=== PATIENT | female | born 1965 | race Caucasian/White ===

== ENCOUNTER 2019-04-08 14:07 | Inpatient (IN) ==
[2019-04-08] MEDS: *HR* LORazepam 0.5 MG TABLET PO PRN (21:40)
[2019-04-08] MEDS: Gabapentin 300 MG CAPSULE PO SCH (21:40)
[2019-04-08] MEDS ORDERED: Ondansetron ODT 4 MG TAB.RAPDIS SL PRN (22:42)
[2019-04-08] MEDS ORDERED: Mag Hydrox/Al Hydrox/Simeth 30 ML UDC PO PRN (22:42)
[2019-04-08] MEDS: Acetaminophen 325 MG TABLET PO PRN (23:03)
[2019-04-09 05:42] LABS: Basophils # 0.1 K/mcL (0.0-0.2); Basophils % 1.1 %; Eosinophils # 0.2 K/mcL (0.0-0.6); Eosinophils % 2.4 %; Hematocrit 28.1 % (35.3-44.9); Hemoglobin 9.2 g/dL (11.5-15.4); Immature Granulocytes % 0.9 % (0-4); Lymphocytes # 2.5 K/mcL (0.6-4.6); Lymphocytes % 37.4 %; Mean Corpuscular HGB Conc 32.7 g/dL (31.6-35.5); Mean Corpuscular Hemoglobin 34.3 pg (28.0-33.3); Mean Corpuscular Volume 104.9 fL (83.0-100.0); Mean Platelet Volume 9.4 fL (9.4-12.4); Monocytes # 0.6 K/mcL (0.0-1.3); Monocytes % 9.6 %; Neutrophils # 3.2 K/mcL (1.6-8.9); Platelet Count 286 K/mcL (140-400); Red Blood Count 2.68 M/mcL (3.82-4.97); Red Cell Distribution Width 15.7 % (11.5-14.5); Segmented Neutrophils % 48.6 %; White Blood Count 6.7 K/mcL (4.3-11.1)
[2019-04-09] MEDS: Ibuprofen 400 MG TABLET PO PRN ×2 (05:42→11:29)
[2019-04-09 05:58] LABS: BUN/Creatinine Ratio 15 (6-26); Blood Urea Nitrogen 8 mg/dL (6-20); Calcium 7.6 mg/dL (8.6-10.3); Carbon Dioxide 26 mEq/L (23-29); Chloride 104 mEq/L (98-107); Glucose 83 mg/dL (70-105); Osmolality,Calculated 285 (280-300); Potassium 3.7 mEq/L (3.5-5.1); Sodium 139 mEq/L (136-145); eGFR For African Americans > 60 (> 60); eGFR For Non-African Americans > 60 (> 60)
[2019-04-09] MEDS: Thiamine (B-1) 100 MG TABLET PO SCH (08:32)
[2019-04-09] MEDS: Lisinopril 20 MG TABLET PO SCH (08:32)
[2019-04-09] MEDS: Aspirin Enteric Coated 81 MG Tablet PO SCH (08:32)
[2019-04-09] MEDS: Gabapentin 300 MG CAPSULE PO SCH ×4 (08:32→20:38)
[2019-04-09] MEDS: Furosemide 40 MG TABLET PO SCH (08:33)
[2019-04-09] MEDS: Folic Acid 1 MG TABLET PO SCH (08:33)
[2019-04-09] MEDS: Nicotine 21 MG PATCH.TD24 TD SCH (08:33)
[2019-04-09] MEDS: *HR* LORazepam 0.5 MG TABLET PO PRN ×2 (08:49→20:38)
[2019-04-09] MEDS: *HR* Enoxaparin 40 MG/0.4 ML SYRINGE SQ SCH (08:50)
--- NOTE | 2019-04-09 09:51 | Internal Med History&Physical ---
Date of Encounter: 04/09/19 Time of Encounter: 09:38 Assessment and Plan (1) Weakness Current visit: Yes Status: Acute Patient was admitted to this facility for further rehabilitation due to generalized weakness and unsteady gait noted during leonardo therapy evaluation at [facility]. Patient was originally admitted to [facility] for complaints of chest discomforts, treatment for UTI and complaints of neuropathy. Patient was diagnosed with alcoholic induced neuropathy, but states that she has no numbness to the feet and states she feels he has a steady gait. Patient states that she is able to ambulate distances greater than 50 feet without getting short of breath. Patient with history of severe tobacco abuse. Physical therapy evaluation pending. (2) Alcohol abuse Current visit: Yes Status: Acute Patient with a history of EtOH abuse, stating that she had stopped drinking approximately one month ago. Patient admitted that she was a daily drinker. Currently patient appears relaxed and shows no signs of withdrawal. (3) Peripheral neuropathy Current visit: Yes Status: Acute Patient with complaints of neuropathy type pain in the bilateral hands and feet which she describes as a burning type pain. Patient was recently started on gabapentin several days ago. No limits of range of motion or fine motor noted with hands. We will continue with current medications and evaluate patient's response. Patient with scheduled outpatient EMG, which was arranged while she was patient had [facility]. 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 We will continue with current medications and continue to monitor. Qualifiers: Hypertension type: essential hypertension Qualified Code(s): I10 - Essential (primary) hypertension (5) Chest pain Current visit: Yes Status: Acute Patient was originally admitted to [facility] for complaints of chest discomforts. Patient was evaluated and showed no cardiac involvement. Qualifiers: Chest pain type: unspecified Qualified Code(s): R07.9 - Chest pain, unspecified (6) Smoking addiction Current visit: Yes Status: Acute Patient states that prior to admission [facility] she was smoking 3 packs a day. Currently denies any craving for smoking. Patient states that she would occasionally become short of breath during activity when at home but denies any dyspnea when ambulating. Patient states that she can ambulate greater than 100 feet without assistance or dyspnea. Denies any use of bronchodilators prior to her admission. Internal Medicine - H&P: HPI Chief complaint: Weakness Admitted From: Hospital to Hospital Transfer Plans for Post Hospital Care: Home History of present illness: Ms. Canales is a 53 year old female with a past medical history significant for GERD, hypertension, tobacco abuse, alcohol abuse. presented to the hospital because of chest pain and also pain with weakness in the upper and lower extremities, 1 year duration, progressively worsening. Patient initially me ntioned that she has has been drinking 15 shots in the week for almost 1-2 years. During this interview, she states that she at times drinks daily, but now states that she has stopped smoking and drinking alcohol. Initial symptoms at [facility] were initially concerning for stroke. CT scan of the head and neck were negative. CT angiogram was also negative for any high grade stenosis or aneurysm. Patient was admitted for further management with a neurology consult. MRI of the brain and spine was also obtained which did not reveal any acute changes, only had mild degenerative changes in the spine. After further history was obtained, it was assumed that patient signed and symptoms are most likely because of alcohol abuse. She was diagnosed with alcoholic neurpathy and was started on gabapentin, 300 mg BID. Neurology recommended to get EMG and nerve conduction studies done as an outpatient in 2-3 weeks. PT/OT recommended the rehabilitation due to her generalized weakness and deconditioning was transferred to [facility]. Patient was also found to have a positive UTI when admitted at [facility] and was treated with antibiotics. Currently denies any dysuria. Today patient with complaints of neuropathy type pain to bilateral hands and feet which she describes as a burning type pain. Denies any numbness. Patient states that her burning pain has been present for approximately one week and had indicated that they had started her on gabapentin while admitted at [facility]. 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,, MULTIBLE FALLS Psychiatric history: anxiety, depression - Past Surgical History Surgical History: , hysterectomy - Social History Smoking Status: Former smoker Smokeless Tobacco Status: No Alcohol use: recent Drug use: none - Family History Father Adopted: No Family Member Ethnicity: Non- Living Status: Hx Family Cardiac Disorders: Yes Hx Family Respiratory Disorders: No Hx Family Cancer: No Hx Family GI Disorders: No Hx Family Endocrine Disorder: No Hx Family Neuromuscular Disorders: No Hx Family Neurologic Disorders: No Hx Family HEENT Disorders: No Hx Family Autoimmune Disorders: No Internal Medicine - H&P: Meds Aspirin [Lo-Dose Aspirin EC] 81 mg PO DAILY 04/03/19 [History] Furosemide [Lasix] 40 mg PO QAM 04/03/19 [History] Lisinopril [Zestril] 40 mg PO DAILY 04/03/19 [History] Pantoprazole Sodium [Protonix] 40 mg PO BID 04/03/19 [History] Potassium Chloride [K-Tab ER] 20 meq PO DAILY 04/03/19 [History] Promethazine [Phenergan] 25 mg PO Q6HR PRN 04/03/19 [History] Folic Acid 1 mg PO DAILY #30 tablet 04/08/19 [Rx] Gabapentin [Neurontin] 300 mg PO BID #14 capsule 04/08/19 [Rx] LORazepam [Ativan] 0.5 mg PO BID PRN 7 Days #14 tablet 04/08/19 [Rx] Nicotine Patch [Nicoderm] 21 mg TD DAILY patch.td24 04/08/19 [Rx] Thiamine (B-1) [Vitamin B-1] 100 mg PO DAILY #30 tablet 04/08/19 [Rx] Allergy/AdvReac Type Severity Reaction Status Date / Time citalopram [From Celexa] Allergy Vomiting Verified 04/03/19 11:21 duloxetine [From Cymbalta] Allergy Vomiting Verified 04/03/19 11:21 All Systems PM: A 10-system review of systems was performed and is negative for pertinent findings except as documented above in the HPI. - Constitutional Constitutional: as per HPI, no chills, no fever(s), no night sweats - EENT Eyes: as per HPI, no change in vision, no discharge, no pain, no photophobia Ears: no ear discharge, no ear pain, no tinnitus Nose, mouth and throat: as per HPI, no dysphagia, no nasal discharge, no neck pain, no sore throat - Breasts Breasts: as per HPI - Cardiovascular Cardiovascular ROS IM: as per HPI, no chest pain, no diaphoresis, no dyspnea, no lightheadedness, no palpitations, no syncope - Respiratory Respiratory: as per HPI, no cough, no dyspnea, no wheezing, no excessive phlegm production - Gastrointestinal Gastrointestinal: as per HPI, no abdominal pain, no diarrhea, no hematemesis, no hematochezia, no melena, no nausea, no vomiting - Genitourinary Genitourinary: as per HPI, no change in urinary stream, no dysuria, no flank pain, no hematuria - Musculoskeletal Musculoskeletal ROS IM: as per HPI, no numbness, no tingling - Integumentary Integumentary IM: as per HPI, no rash, no unusual bruising - Neurological Neurological ROS: as per HPI, no confusion, no convulsions, no focal weakness, no numbness, no tingling, no tremor(s) - Psychiatric Psychiatric: as per HPI - Hematologic/Lymphatic Hematologic/Lymphatic: no easy bruising - Constitutional Vitals: Temp Pulse Resp BP Pulse Ox 97.6 F 91 16 152/92 98 04/09/19 07:34 04/09/19 07:34 04/09/19 07:34 04/09/19 07:34 04/09/19 07:34 General appearance: Present: A&O X 3, pleasant - Head Head exam: Present: atraumatic, normocephalic - Eye Eye exam: Present: PERRL, conjuntiva pink, sclera anicteric Pupils: Present: PERRL - Neck Neck exam general surgery: Present: supple, trachea midline. Absent: lymphadenopathy - Respiratory Respiratory exam: Present: CTAB. Absent: accessory muscle use, rales, rhonchi, wheezes - Cardiovascular Cardiovascular exam: Present: RRR, +S1, +S2. Absent: diastolic murmur, gallop, rubs, systolic murmur - GI/Abdominal GI/Abdominal exam: Present: normal bowel sounds, soft, no peritoneal signs. Absent: distended, tenderness - Extremities Exam Extremities exam: Present: warm, radial pulses palpable and symmetrical. Absent: calf tenderness, cyanotic, pedal edema Additional comments: Patient complaints of neuropathy type tingling pain to bilateral hands up to the mid wrist level. Patient also with complaints of neuropathy type pain bilateral feet to the upper ankle low. States pain is worse with palpation. No limits to range of motion or fine motor movement noted - Neurological Exam Neurological exam: Present: CN II-XII intact, oriented X3, no focal deficits. A bsent: pronater drift, facial droop, speech deficit - Skin Skin exam: Present: dry, intact Internal Med - H&P Results - Labs CBC & Chem 7: 04/09/19 05:35 04/09/19 05:35 Labs: Short CBC 04/09/19 Range/Units 05:35 WBC 6.7 (4.3-11.1) K/mcL Hgb 9.2 L (11.5-15.4) g/dL Hct 28.1 L (35.3-44.9) % Plt Count 286 (140-400) K/mcL Neutrophils # 3.2 (1.6-8.9) K/mcL BMP 04/09/19 05:35 Sodium 139 Potassium 3.7 Chloride 104 Carbon Dioxide 26 BUN 8 Creatinine 0.53 L Glucose 83 Calcium 7.6 L
[2019-04-09] MEDS ORDERED: Magnesium Sulfate 2 GM in D5% in Water 100 ML IVPB ONE (10:15)
[2019-04-09 10:50] LABS: Albumin 2.5 g/dL (3.5-5.7); Bilirubin,Direct 0.4 mg/dL (0.0-0.2); Bilirubin,Indirect 0.5 mg/dL (0.0-1.2); Bilirubin,Total 0.9 mg/dL (0.3-1.0); Globulin 2.4 g/dL (2.4-3.5); Total Protein 4.9 g/dL (6.4-8.9)
[2019-04-09] MEDS: Acetaminophen 325 MG TABLET PO PRN (16:30)
[2019-04-09] MEDS: Melatonin 3 MG TABLET PO PRN (20:38)
[2019-04-10] MEDS: Nicotine 21 MG PATCH.TD24 TD SCH (08:41)
[2019-04-10] MEDS: Aspirin Enteric Coated 81 MG Tablet PO SCH (08:43)
[2019-04-10] MEDS: Furosemide 40 MG TABLET PO SCH (08:43)
[2019-04-10] MEDS: *HR* LORazepam 0.5 MG TABLET PO PRN ×2 (08:43→20:24)
[2019-04-10] MEDS: *HR* Enoxaparin 40 MG/0.4 ML SYRINGE SQ SCH (08:43)
[2019-04-10] MEDS: Folic Acid 1 MG TABLET PO SCH (08:43)
[2019-04-10] MEDS: Lisinopril 20 MG TABLET PO SCH (08:43)
[2019-04-10] MEDS: Gabapentin 300 MG CAPSULE PO SCH ×4 (08:43→20:24)
[2019-04-10] MEDS: Thiamine (B-1) 100 MG TABLET PO SCH (08:43)
--- NOTE | 2019-04-10 12:08 | Internal Med Progress Note ---
Date of Encounter: 04/10/19 Time of Encounter: 12:06 - Assessment and plan (1) Weakness Current Visit: Yes Status: Acute Assessment and plan: Continue PT and OT. Will follow progress. Ambulating with Walker. Has had a reported loss of balance with therapy. (2) Smoking addiction Current Visit: Yes Status: Acute Assessment and plan: States she spent 3 packs a day at times at home. Denies any craving for smoking at this time. (3) Alcohol abuse Current Visit: Yes Status: Acute Assessment and plan: Educated alcohol abuse and medical side effects that can cause neuropathy. (4) Peripheral neuropathy Current Visit: Yes Status: Acute Assessment and plan: Continue gabapentin. Follow up with neurology. 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 Monitor blood pressure. Qualifiers: Hypertension type: essential hypertension Qualified Code(s): I10 - Essential (primary) hypertension - Time Spent With Patient less than 15 minutes - Subjective Interval history: Patient participating well with therapy. Contact guard assist with Walker. Has had occasional balance loss. Continues to complain of bilateral numbness, tingling in pain in bilateral feet and hands. Gabapentin was recently increased. Maintaining appetite and hydration. Denies having a craving for smoking. Discussed alcohol abuse in the link they could have with neuropathy. Patient states that she would only have "drinks" occasionally and not every day. States she cares for her 3 young grandkids during the day 4 days a week. Was diagnosed in 2008 with fibromyalgia. Has had history of TIA. - Constitutional Vitals: Temp Pulse Resp BP Pulse Ox 98.0 F 103 18 144/86 97 04/10/19 07:00 04/10/19 07:00 04/10/19 07:00 04/10/19 10:36 04/10/19 07:00 General appearance: Present: A&O X 3, pleasant, answers questions appropriately - Head Head exam: Present: atraumatic, normocephalic - Eye Eye exam: Present: PERRL, conjuntiva pink, sclera anicteric Pupils: Present: PERRL - Neck Neck exam general surgery: Present: supple, trachea midline. Absent: lymphadenopathy - Respiratory Respiratory exam: Present: CTAB. Absent: accessory muscle use, rales, rhonchi, wheezes - Cardiovascular Cardiovascular exam: Present: RRR, +S1, +S2. Absent: diastolic murmur, gallop, rubs, systolic murmur - GI/Abdominal GI/Abdominal exam: Present: normal bowel sounds, soft, no peritoneal signs. Absent: distended, tenderness - Extremities Exam Extremities exam: Present: warm, radial pulses palpable and symmetrical. Absent: calf tenderness, cyanotic, pedal edema - Neurological Exam Neurological exam: Present: CN II-XII intact, oriented X3, no focal deficits. Absent: pronater drift, facial droop, speech deficit - Skin Skin exam: Present: dry, intact Internal Medicine: Result - Labs CBC & Chem 7: 04/09/19 05:35 04/09/19 05:35 Consult Discharge Plan - Plan Referrals: Kristne Griffiths, [facility] [Primary Care Provider] -
[2019-04-10] MEDS: Acetaminophen 325 MG TABLET PO PRN (15:21)
[2019-04-10] MEDS: Melatonin 3 MG TABLET PO PRN (20:24)
[2019-04-11] MEDS: Thiamine (B-1) 100 MG TABLET PO SCH (08:06)
[2019-04-11] MEDS: Aspirin Enteric Coated 81 MG Tablet PO SCH (08:06)
[2019-04-11] MEDS: *HR* Enoxaparin 40 MG/0.4 ML SYRINGE SQ SCH (08:06)
[2019-04-11] MEDS: Furosemide 40 MG TABLET PO SCH (08:06)
[2019-04-11] MEDS: *HR* LORazepam 0.5 MG TABLET PO PRN ×2 (08:06→20:20)
[2019-04-11] MEDS: Lisinopril 20 MG TABLET PO SCH (08:06)
[2019-04-11] MEDS: Folic Acid 1 MG TABLET PO SCH (08:06)
[2019-04-11] MEDS: Gabapentin 300 MG CAPSULE PO SCH ×4 (08:06→20:20)
[2019-04-11] MEDS: Nicotine 21 MG PATCH.TD24 TD SCH (08:07)
--- NOTE | 2019-04-11 09:02 | Internal Med Progress Note ---
Date of Encounter: 04/11/19 Time of Encounter: 08:59 - Assessment and plan (1) Alcohol abuse Current Visit: Yes Status: Acute Assessment and plan: No withdrawal at the present time Mild tacy last night stable on small dose of Ativan continue present meds for now. She dnies that ETOH is an issues and is is in denial (2) Hypomagnesemia Current Visit: No Status: Acute Assessment and plan: resolved IV Mg last levels stable (3) Peripheral neuropathy Current Visit: Yes Status: Acute Assessment and plan: Most likely due to alcohol abuse . Neurantin has been started she diens that ETOH is an issue Since complains of lot of pain . She can't take NSAID due to high risk for bleedin in GI tract which she had in the past and a trial of small dose of Ultram only before she goes for PT> i have discussed this in lenght with [facility] and she understands that higher dose or any other medications which she has asked nurses in the past will not be given due to her high risl of addiction issues however i feel that a controlled amount fo medications should be tried for PRN bases only for her pain Qualifiers: Peripheral neuropathy type: polyneuropathy, alcohol-induced Qualified Code(s): G62.1 - Alcoholic polyneuropathy (4) Hypertension Current Visit: Yes Status: Chronic Assessment and plan: On med stable at the present time Qualifiers: Hypertension type: essential hypertension Qualified Code(s): I10 - Essential (primary) hypertension - Subjective Interval history: Cross coverage .Pt complains of severe burning pain in her hands and feet . She states that present pain meds are not helping . NSAID causes GI upset and bleed and had issue with NSAID in the past. Neurantin which was started and increased doesn't seems to be cutting it for her now . She has been having issues with some tingling and numbness on both sides of face and arm . NO chest pain NO SOB , no hallucination of any kind . She is sitting in chair comfortable. Has difficulty in participating in Rehab due to burning in her hands - Constitutional Vitals: Temp Pulse Resp BP Pulse Ox 98.9 F 98 18 138/87 96 04/11/19 07:00 04/11/19 07:00 04/11/19 07:00 04/11/19 07:00 04/11/19 07:00 General appearance: Present: A&O X 3, pleasant, answers questions appropriately - Head Head exam: Present: atraumatic - Eye Eye exam: Present: EOMI, PERRL. Absent: conjuntiva pink, sclera anicteric - Neck Neck exam general surgery: Present: full ROM, supple. Absent: tenderness, nuchal rigidity - Respiratory Respiratory exam: Present: CTAB. Absent: chest wall tenderness, decreased breath sounds, respiratory distress, rhonchi, stridor, wheezes, tachypnea - Cardiovascular Cardiovascular exam: Present: RRR, +S1. Absent: gallop, systolic murmur, tachycardia - GI/Abdominal GI/Abdominal exam: Present: normal bowel sounds, soft. Absent: guarding, rebound, rigid, tenderness, no peritoneal signs - Extremities Exam Extremities exam: Present: full ROM, tenderness. Absent: cyanotic, mottling, pedal edema Additional comments: complains of some pain and numbness when touched her hands , has bruises multiple areas - Back Exam Back exam: Absent: muscle spasm, paraspinal tenderness, tenderness - Neurological Exam Neurological exam: Present: alert, CN II-XII intact, oriented X3, no focal deficits, strengths equal and symetr throughout. Absent: facial droop, speech deficit Additional comments: Hypersensitive to touch Internal Medicine: Result - Labs CBC & Chem 7: 04/09/19 05:35 04/09/19 05:35 Consult Discharge Plan - Plan Referrals: Kristen Griffiths, [facility] [Primary Care Provider] -
[2019-04-11] MEDS: traMADol 50 MG TABLET PO PRN ×3 (09:26→21:49)
[2019-04-11] MEDS: Acetaminophen 325 MG TABLET PO PRN (20:20)
[2019-04-11] MEDS: Melatonin 3 MG TABLET PO PRN (20:21)
[2019-04-12] MEDS: traMADol 50 MG TABLET PO PRN ×2 (05:44→20:13)
[2019-04-12] MEDS: Nicotine 21 MG PATCH.TD24 TD SCH (07:58)
[2019-04-12] MEDS: *HR* Enoxaparin 40 MG/0.4 ML SYRINGE SQ SCH (07:59)
[2019-04-12] MEDS: Lisinopril 20 MG TABLET PO SCH (08:01)
[2019-04-12] MEDS: Thiamine (B-1) 100 MG TABLET PO SCH (08:01)
[2019-04-12] MEDS: Furosemide 40 MG TABLET PO SCH (08:01)
[2019-04-12] MEDS: Gabapentin 300 MG CAPSULE PO SCH ×4 (08:01→20:12)
[2019-04-12] MEDS: *HR* LORazepam 0.5 MG TABLET PO PRN ×2 (08:01→20:12)
[2019-04-12] MEDS: Folic Acid 1 MG TABLET PO SCH (08:01)
[2019-04-12] MEDS: Aspirin Enteric Coated 81 MG Tablet PO SCH (08:01)
--- NOTE | 2019-04-12 08:28 | Internal Med Progress Note ---
Date of Encounter: 04/12/19 Time of Encounter: 08:26 - Assessment and plan (1) Alcohol abuse Current Visit: Yes Status: Acute Assessment and plan: No active withdrawal . BP noted to be slightly high but pulse is normal will follow .continue present meds for her and watch . continue PT (2) Hypomagnesemia Current Visit: No Status: Resolved Assessment and plan: last level 1.9 received IV and is stable IV access can be removed as its infiltrated (3) Peripheral neuropathy Current Visit: Yes Status: Acute Assessment and plan: on meds . On gabapentin , if does help cymbalta might help better will leave it to primary provider to consider ultram before and PT to help and one at night time no other narcotics . pt asks for Dilaudid and morphine from Nurses. I discussed in length about potential of absue especially with her hx of ETOH she understands NSAID are not being used as well due to high risk for GI bleed No evidence of back pain although she does complains of it if she continues to complains we could use Lidocaine patch Qualifiers: Peripheral neuropathy type: polyneuropathy, alcohol-induced Qualified Code(s): G62.1 - Alcoholic polyneuropathy (4) Hypertension Current Visit: Yes Status: Chronic Assessment and plan: On med stable at the present time slightly high will adjust as needed Qualifiers: Hypertension type: essential hypertension Qualified Code(s): I10 - Essential (primary) hypertension (5) Cramp and spasm Current Visit: Yes Status: Acute Assessment and plan: K level ordered complains of cramps symptomatic treatment discussed with her. Will follow . (6) Cramp in limb Current Visit: Yes Status: Acute - Subjective Interval history: Cross coverage .Multiple complains of having numbness across the face aso complains of pain in her shoulders , and today radiating pain from back to her hip . She is alert and oriented no hallucinations of any kind . no restless Catron ,fixated on getting pain meds. She has hx of Gastritis. Also complains of cramps in legs last night - Constitutional Vitals: Temp Pulse Resp BP Pulse Ox 98.7 F 97 14 154/107 97 04/12/19 07:58 04/12/19 07:58 04/12/19 07:58 04/12/19 07:58 04/12/19 07:58 General appearance: Present: cooperative, A&O X 3, pleasant, answers questions appropriately - Head Head exam: Present: atraumatic - Eye Eye exam: Present: normal appearance, PERRL, sclera anicteric. Absent: scleral icterus, conjuntiva pink - Neck Neck exam general surgery: Present: full ROM, supple. Absent: tenderness, nuchal rigidity - Respiratory Respiratory exam: Present: CTAB. Absent: respiratory distress, rhonchi, stridor, wheezes, tachypnea - Cardiovascular Cardiovascular exam: Present: RRR, +S1, +S2. Absent: systolic murmur - GI/Abdominal GI/Abdominal exam: Present: normal bowel sounds, soft. Absent: rebound, rigid, tenderness, no peritoneal signs - Extremities Exam Extremities exam: Absent: pedal edema, tenderness - Back Exam Back exam: Present: normal inspection Additional comments: no local tenderness noted . negative for leg raise , no paraspinal tenderness noted - Neurological Exam Neurological exam: Present: altered, CN II-XII intact, oriented X3, no focal deficits, strengths equal and symetr throughout. Absent: facial droop, speech deficit - Skin Additional comments: echymosis on both arms noted Internal Medicine: Result - Labs CBC & Chem 7: 04/09/19 05:35 04/09/19 05:35 Consult Discharge Plan - Plan Referrals: Kristen Griffiths, [facility] [Primary Care Provider] -
[2019-04-12] MEDS: Acetaminophen 325 MG TABLET PO PRN ×2 (14:23→18:28)
[2019-04-12] MEDS: Melatonin 3 MG TABLET PO PRN (20:13)
[2019-04-13] MEDS: Acetaminophen 325 MG TABLET PO PRN ×2 (06:29→13:35)
--- NOTE | 2019-04-13 08:10 | Internal Med Progress Note ---
Date of Encounter: 04/13/19 Time of Encounter: 08:08 - Assessment and plan (1) Alcohol abuse Current Visit: Yes Status: Acute Assessment and plan: No active withdrawal . Stable at the present time She received Benadryl for itching last night and sleeping well may also be helping ehr in her anxiety (2) Hypomagnesemia Current Visit: No Status: Resolved (3) Peripheral neuropathy Current Visit: Yes Status: Acute Assessment and plan: Todays she seems to be doing better , still has numbness and pain but not complaining a lot . Continue present meds as given Continue support and PT Qualifiers: Peripheral neuropathy type: polyneuropathy, alcohol-induced Qualified Code(s): G62.1 - Alcoholic polyneuropathy (4) Hypertension Current Visit: Yes Status: Chronic Assessment and plan: Doing fine and stable continue to monitor Qualifiers: Hypertension type: essential hypertension Qualified Code(s): I10 - Essential (primary) hypertension (5) Cramp and spasm Current Visit: Yes Status: Acute (6) Cramp in limb Current Visit: Yes Status: Acute - Subjective Interval history: Cross coverage . Today seems to be more calm and less complains still feels that her numbers on her face is present no back pain , neuropathy pain somewhat better or no worsening . - Constitutional Vitals: Temp Pulse Resp BP Pulse Ox 98.1 F 109 16 111/74 98 04/12/19 19:43 04/12/19 19:43 04/12/19 19:43 04/12/19 19:43 04/12/19 19:43 General appearance: Present: cooperative, A&O X 3, pleasant, answers questions appropriately - Head Head exam: Present: atraumatic - Eye Eye exam: Present: EOMI, PERRL. Absent: scleral icterus, conjuntiva pink, sclera anicteric - Neck Neck exam general surgery: Present: supple. Absent: tenderness, nuchal rigidity - Respiratory Respiratory exam: Present: CTAB. Absent: respiratory distress, rhonchi, stridor - Cardiovascular Cardiovascular exam: Present: RRR, +S1, +S2. Absent: systolic murmur, tachycardia - GI/Abdominal GI/Abdominal exam: Present: normal bowel sounds, soft. Absent: guarding, rebound, tenderness, no peritoneal signs - Extremities Exam Extremities exam: Present: full ROM. Absent: joint swelling, pedal edema, tenderness - Back Exam Back exam: Absent: muscle spasm, paraspinal tenderness, rash noted, tenderness - Neurological Exam Neurological exam: Present: alert, CN II-XII intact, oriented X3, no focal deficits, strengths equal and symetr throughout Internal Medicine: Result - Labs CBC & Chem 7: 04/09/19 05:35 04/12/19 09:00 Labs: BMP 04/12/19 09:00 Potassium 4.1 Consult Discharge Plan - Plan Referrals: Kristen Griffiths, [facility] [Primary Care Provider] -
[2019-04-13] MEDS: Aspirin Enteric Coated 81 MG Tablet PO SCH (08:17)
[2019-04-13] MEDS: *HR* Enoxaparin 40 MG/0.4 ML SYRINGE SQ SCH (08:17)
[2019-04-13] MEDS: Gabapentin 300 MG CAPSULE PO SCH ×4 (08:17→20:28)
[2019-04-13] MEDS: Nicotine 21 MG PATCH.TD24 TD SCH (08:17)
[2019-04-13] MEDS: Lisinopril 20 MG TABLET PO SCH (08:17)
[2019-04-13] MEDS: Furosemide 40 MG TABLET PO SCH (08:17)
[2019-04-13] MEDS: Folic Acid 1 MG TABLET PO SCH (08:18)
[2019-04-13] MEDS: traMADol 50 MG TABLET PO PRN ×2 (08:18→20:39)
[2019-04-13] MEDS: Thiamine (B-1) 100 MG TABLET PO SCH (08:18)
[2019-04-13] MEDS: *HR* LORazepam 0.5 MG TABLET PO PRN ×2 (08:21→20:39)
[2019-04-13] MEDS: Melatonin 3 MG TABLET PO PRN (20:38)
[2019-04-14] MEDS: Acetaminophen 325 MG TABLET PO PRN ×2 (04:49→15:48)
[2019-04-14] MEDS: *HR* Enoxaparin 40 MG/0.4 ML SYRINGE SQ SCH (07:52)
[2019-04-14] MEDS: Nicotine 21 MG PATCH.TD24 TD SCH (07:52)
[2019-04-14] MEDS: Aspirin Enteric Coated 81 MG Tablet PO SCH (07:53)
[2019-04-14] MEDS: traMADol 50 MG TABLET PO PRN ×2 (07:53→18:32)
[2019-04-14] MEDS: Lisinopril 20 MG TABLET PO SCH (07:53)
[2019-04-14] MEDS: Gabapentin 300 MG CAPSULE PO SCH ×4 (07:53→21:33)
[2019-04-14] MEDS: Folic Acid 1 MG TABLET PO SCH (07:53)
[2019-04-14] MEDS: Furosemide 40 MG TABLET PO SCH (07:53)
[2019-04-14] MEDS: *HR* LORazepam 0.5 MG TABLET PO PRN ×2 (07:53→21:33)
[2019-04-14] MEDS: Thiamine (B-1) 100 MG TABLET PO SCH (07:53)
--- NOTE | 2019-04-14 10:19 | Internal Med Progress Note ---
Date of Encounter: 04/14/19 Time of Encounter: 10:17 - Assessment and plan (1) Peripheral neuropathy Current Visit: Yes Status: Acute Assessment and plan: Continue gabapentin. Follow up with neurology. Nursing staff scheduling EMG. Qualifiers: Peripheral neuropathy type: polyneuropathy, alcohol-induced Qualified Code(s): G62.1 - Alcoholic polyneuropathy (2) Weakness Current Visit: Yes Status: Acute Assessment and plan: Continue PT and OT. Will follow progress. Ambulating with Walker. Has had a reported loss of balance with therapy. (3) Smoking addiction Current Visit: Yes Status: Acute Assessment and plan: States she spent 3 packs a day at times at home. Denies any craving for smoking at this time. (4) Alcohol abuse Current Visit: Yes Status: Acute Assessment and plan: Educated alcohol abuse and medical side effects that can cause neuropathy. (5) Hypertension Current Visit: Yes Status: Chronic Assessment and plan: Controlled with current medication. Monitor blood pressure. Qualifiers: Hypertension type: essential hypertension Qualified Code(s): I10 - Essential (primary) hypertension - Time Spent With Patient less than 15 minutes - Subjective Interval history: Patient participating well with therapy. Contact guard assist with Walker. Has had occasional balance loss. Continues to complain of bilateral numbness, tingling in pain in bilateral feet and hands. Taking tramadol twice a day for pain. States it works for about an hour and then wears off. Taking gabapentin. Maintaining appetite and hydration. Nursing staff scheduling follow up for EMG with neurology. - Constitutional Vitals: Temp Pulse Resp BP Pulse Ox 97.8 F 105 15 169/109 98 04/14/19 07:36 04/14/19 07:36 04/14/19 07:36 04/14/19 07:36 04/14/19 07:36 General appearance: Present: cooperative, A&O X 3, pleasant, answers questions appropriately - Head Head exam: Present: atraumatic, normocephalic - Eye Eye exam: Present: PERRL, conjuntiva pink, sclera anicteric Pupils: Present: PERRL - Neck Neck exam general surgery: Present: supple, trachea midline. Absent: lymphadenopathy - Respiratory Respiratory exam: Present: CTAB. Absent: accessory muscle use, rales, rhonchi, wheezes - Cardiovascular Cardiovascular exam: Present: RRR, +S1, +S2. Absent: diastolic murmur, gallop, rubs, systolic murmur - GI/Abdominal GI/Abdominal exam: Present: normal bowel sounds, soft, no peritoneal signs. Absent: distended, tenderness - Extremities Exam Extremities exam: Present: warm, radial pulses palpable and symmetrical. Absent: calf tenderness, cyanotic, pedal edema - Neurological Exam Neurological exam: Present: CN II-XII intact, oriented X3, no focal deficits. Absent: pronater drift, facial droop, speech deficit - Skin Skin exam: Present: dry, intact Internal Medicine: Result - Labs CBC & Chem 7: 04/09/19 05:35 04/12/19 09:00 Consult Discharge Plan - Plan Referrals: Kristen Griffiths, PRODUCT MANAGER [Primary Care Provider] -
[2019-04-14] MEDS: Melatonin 3 MG TABLET PO PRN (21:33)
[2019-04-15] MEDS: traMADol 50 MG TABLET PO PRN ×3 (00:31→21:22)
[2019-04-15] MEDS: Lisinopril 20 MG TABLET PO SCH (08:45)
[2019-04-15] MEDS: Furosemide 40 MG TABLET PO SCH (08:45)
[2019-04-15] MEDS: Gabapentin 300 MG CAPSULE PO SCH ×4 (08:45→21:22)
[2019-04-15] MEDS: Folic Acid 1 MG TABLET PO SCH (08:45)
[2019-04-15] MEDS: Nicotine 21 MG PATCH.TD24 TD SCH (08:45)
[2019-04-15] MEDS: Aspirin Enteric Coated 81 MG Tablet PO SCH (08:45)
[2019-04-15] MEDS: Thiamine (B-1) 100 MG TABLET PO SCH (08:45)
[2019-04-15] MEDS: *HR* Enoxaparin 40 MG/0.4 ML SYRINGE SQ SCH (08:46)
[2019-04-15] MEDS: *HR* LORazepam 0.5 MG TABLET PO PRN ×2 (09:00→21:22)
--- NOTE | 2019-04-15 11:33 | Internal Med Progress Note ---
Date of Encounter: 04/15/19 Time of Encounter: 11:29 - Assessment and plan (1) Weakness Current Visit: Yes Status: Acute Assessment and plan: Patient continues with complaints of weakness. Therapy reports patient has poor balance with continued needs for assistance and remains a fall risk. Patient states she has difficulty with her balance due to her inability to feel the floor, which is secondary to her neuropathy. We will perform a [id number] with her insurance this afternoon as part of her appeal process (2) Alcohol abuse Current Visit: Yes Status: Chronic Assessment and plan: No acute issues. Patient has been appropriate during her stay. We will continue to monitor and continue with current medications. 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 We will continue with current gabapentin dosing. (3) Peripheral neuropathy Current Visit: Yes Status: Chronic Assessment and plan: Patient continues with complaints of burning type neuropathy of bilateral hands and feet. We will review patient's current gabapentin dosing. Patient continues on tramadol for pain but states that has minimal effect. Qualifiers: Peripheral neuropathy type: polyneuropathy, alcohol-induced Qualified Code(s): G62.1 - Alcoholic polyneuropathy (4) Hypertension Current Visit: Yes Status: Chronic Assessment and plan: Patient with episode of dizziness and hypotension this morning after receiving home morning scheduled medications along with when necessary's. We will reduce patient's current lisinopril dosing and continue to monitor. We will obtain orthostatic Qualifiers: Hypertension type: essential hypertension Qualified Code(s): I10 - Essential (primary) hypertension - Time Spent With Patient less than 15 minutes - Subjective Interval history: Patient appears relaxed but currently complaints of dizziness. Patient was participating in therapy and had a incidents in which she became very dizzy. Blood pressure was checked with a systolic of 78 on the right arm and 79 on the left arm. Her rate had increased to 110. Medical records were reviewed and showed patient had received her hypertension medications approximately one hour prior along with her Ativan and tramadol. Patient was placed back into bed and observed over the next half hour and blood pressure was repeated which showed systolic of 105. Patient denied any chest discomforts or palpitations. Denied any dyspnea. Patient has stated concerns about being discharged later this week due to insurance cut. Patient states that she feels unsafe to go home and has requested an appeal process. Patient also continues with complaints of neuropathy type burning bilateral hands and feet. Patient using frequent when necessary medications for both pain and nausea. - Constitutional Vitals: Temp Pulse Resp BP Pulse Ox 98.0 F 112 16 102/75 97 04/15/19 06:57 04/15/19 11:02 04/15/19 06:57 04/15/19 11:02 04/15/19 06:57 General appearance: Present: cooperative, A&O X 3, pleasant, answers questions appropriately - Head Head exam: Present: atraumatic, normocephalic - Eye Eye exam: Present: PERRL, conjuntiva pink, sclera anicteric Pupils: Present: PERRL - Neck Neck exam general surgery: Present: supple, trachea midline. Absent: lymphadenopathy - Respiratory Respiratory exam: Present: CTAB. Absent: accessory muscle use, rales, rhonchi, wheezes - Cardiovascular Cardiovascular exam: Present: RRR, +S1, +S2. Absent: diastolic murmur, gallop, rubs, systolic murmur - GI/Abdominal GI/Abdominal exam: Present: normal bowel sounds, soft, no peritoneal signs. Absent: distended, tenderness - Extremities Exam Extremities exam: Present: warm, radial pulses palpable and symmetrical. Absent: calf tenderness, cyanotic, pedal edema - Neurological Exam Neurological exam: Present: CN II-XII intact, oriented X3, no focal deficits. Absent: pronater drift, facial droop, speech deficit - Skin Skin exam: Present: dry, intact Internal Medicine: Result - Labs CBC & Chem 7: 04/09/19 05:35 04/12/19 09:00 Consult Discharge Plan - Plan Referrals: Kristen Griffiths, AMY [Primary Care Provider] -
[2019-04-15] MEDS: Acetaminophen 325 MG TABLET PO PRN (13:02)
[2019-04-15] MEDS ORDERED: 0.9 % Sodium Chloride 1,000 ML IVC SCH (13:15)
--- NOTE | 2019-04-15 15:16 | Psychological Evaluation ---
Date of Encounter: 04/15/19 Time of Encounter: 01:00 History of Present Illness History of present illness: Ms. Canales is a 53 year old female who had onset of diffuse pain, especially chest and low back pain, about a month ago. She states that she had sudden onset of pain and burning sensation in her feet and hands which she thought was gout. She was admitted to [facility] and an extensive evaluation revealed peripheral neuropathy of uncertain etiology but possibly alcohol related. She was treated for alcohol withdrawal with [facility] protocol even though she had not had alcoholic drink for 2-3 weeks. She was noted to have fall risk and weakness and was thus transferred here for rehabilitation. She continued to complain of diffuse pains. She has a hiatal hernia and had reflux symptoms during her admission. She states that Zofran does not help at all and that she needs Phenergan. She was found to have an aneurysm of the aorta. This is apparently a thoracic and not dissecting. Note, thyroid function was found to be normal. Pt was seen bedside due to low blood pressure. Past Medical History - Psychiatric History Psychiatric history: Reports: no psych history Home Medications and Allergies Aspirin [Lo-Dose Aspirin EC] 81 mg PO DAILY 04/03/19 [History] Furosemide [Lasix] 40 mg PO QAM 04/03/19 [History] Lisinopril [Zestril] 40 mg PO DAILY 04/03/19 [History] Pantoprazole Sodium [Protonix] 40 mg PO BID 04/03/19 [History] Potassium Chloride [K-Tab ER] 20 meq PO DAILY 04/03/19 [History] Promethazine [Phenergan] 25 mg PO Q6HR PRN 04/03/19 [History] Folic Acid 1 mg PO DAILY #30 tablet 04/08/19 [Rx] Gabapentin [Neurontin] 300 mg PO BID #14 capsule 04/08/19 [Rx] LORazepam [Ativan] 0.5 mg PO BID PRN 7 Days #14 tablet 04/08/19 [Rx] Nicotine Patch [Nicoderm] 21 mg TD DAILY patch.[id number] 04/08/19 [Rx] Thiamine (B-1) [Vitamin B-1] 100 mg PO DAILY #30 tablet 04/08/19 [Rx] Allergy/AdvReac Type Severity Reaction Status Date / Time citalopram [From Celexa] Allergy Vomiting Verified 04/03/19 11:21 duloxetine [From Cymbalta] Allergy Vomiting Verified 04/03/19 11:21 acetaminophen [From [place]] AdvReac Itching Verified 04/11/19 07:43 hydrocodone [From [place]] AdvReac Itching Verified 04/11/19 07:43 Social History - Social History Social History: Pt on 3rd marriage of 20 years and has 3 adult children and 6 grandchildren. 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 She not weight loss of 100# over the lasy year due to multiple physical isses. She stated she drank somewhat heavily over the past year as a maladaptive coping skill due to physical issues. She stated she did not drink at home just out socially with and at times became intoxicated. She stated she quit 2 months ago. She denies alcoholism. - Tobacco Use Smoking Status: Former smoker Have you smoked in the last 12 months: Yes - Alcohol Use Alcohol Use: heavy - Drug Use Drug Use: none Cognitive/Emotional Assessment - Cognitive Ability Abstract Thinking Ability: No Deficits Noted Attention Span Ability: Capable of Focused Attention, Capable of Sustained Attention Language Function Ability: No Deficits Noted Verbal Communication Ability: Conversational Style Problem Solving Ability: Able To Solve Simple Problems Level of Alertness: Alert Memory Description: Recent Intact, Remote Intact Orientation: Person, Place, Time Ability to Follow Directions: Good Speech Pattern: Normal rate, Normal tone, Appropriate Thought Process: Linear - Emotional Status Mood Description: Depressed, Anxious Affect Description: Tearful Coping Ability: Unsure about ability to cope Additional Findings: Tearful when discussing potential saturday discharge and fear of falling etc at home. Stated has been on Ativan since November-December and wants to learn behavioral coping strategies vs medication. Assessment & Plan - Diagnosis (1) Adjustment disorder with mixed anxiety and depressed mood - Prognosis Prognosis: Good - Treatment Plan Treatment Plan/Recommendations: Will work on relaxation strategies (apps on phone and rec tx) and develop coping strategies to manage acceptance of unknown medical issues and changes in function. Treatment Frequency: weekly Next Session Date: 04/22/19 Procedures - Participants Therapy Participant: Patient - Session Time Session Start Time: 01:00 Session Stop Time: 01:30
[2019-04-15] MEDS: hydrALAZINE 10 MG TABLET PO PRN (23:14)
[2019-04-16] MEDS: Furosemide 40 MG TABLET PO SCH (07:46)
[2019-04-16] MEDS: Gabapentin 300 MG CAPSULE PO SCH ×3 (07:46→20:50)
[2019-04-16] MEDS: Thiamine (B-1) 100 MG TABLET PO SCH (07:46)
[2019-04-16] MEDS: Nicotine 21 MG PATCH.TD24 TD SCH (07:46)
[2019-04-16] MEDS: *HR* Enoxaparin 40 MG/0.4 ML SYRINGE SQ SCH (07:46)
[2019-04-16] MEDS: *HR* LORazepam 0.5 MG TABLET PO PRN ×2 (07:47→20:50)
[2019-04-16] MEDS: traMADol 50 MG TABLET PO PRN ×2 (07:47→17:33)
[2019-04-16] MEDS: Aspirin Enteric Coated 81 MG Tablet PO SCH (07:47)
[2019-04-16] MEDS: Lisinopril 20 MG TABLET PO SCH (07:47)
[2019-04-16] MEDS: Folic Acid 1 MG TABLET PO SCH (07:48)
[2019-04-16] MEDS: Ondansetron ODT 4 MG TAB.RAPDIS SL PRN (07:48)
--- NOTE | 2019-04-16 09:38 | Internal Med Progress Note ---
Date of Encounter: 04/16/19 Time of Encounter: 09:36 - Assessment and plan (1) Weakness Current Visit: Yes Status: Acute Assessment and plan: Patient continues with complaints of weakness. Therapy reports patient has poor balance with continued needs for assistance and remains a fall risk. Patient states she has difficulty with her balance due to her inability to feel the floor, which is secondary to her neuropathy. We will perform a [id number] with her insurance this afternoon as part of her appeal process (2) Alcohol abuse Current Visit: Yes Status: Chronic Assessment and plan: No acute issues. Patient has been appropriate during her stay. We will continue to monitor and continue with current medications. 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 We will continue with current gabapentin dosing. (3) Peripheral neuropathy Current Visit: Yes Status: Chronic Assessment and plan: Patient continues with complaints of burning type neuropathy of bilateral hands and feet. We will review patient's current gabapentin dosing. Patient continues on tramadol for pain but states that has minimal effect. Qualifiers: Peripheral neuropathy type: polyneuropathy, alcohol-induced Qualified Code(s): G62.1 - Alcoholic polyneuropathy (4) Hypertension Current Visit: Yes Status: Chronic Assessment and plan: Today his blood pressure has improved with systolic blood pressure ranging between 140-160 on readings overnight. Denies any chest discomforts of palpitations. Denies dizziness. We will review patient's current medication list per titration Qualifiers: Hypertension type: essential hypertension Qualified Code(s): I10 - Essential (primary) hypertension - Time Spent With Patient less than 15 minutes - Subjective Interval history: Patient appears relaxed and currently denies any dizziness or palpitations. Magalis murillo's blood pressure has improved today with most readings showing systolic of 140-150. Today's blood pressure reflects a decrease in lisinopril which the dose he was cut in half to 20 mg for this morning. Patient has stated concerns about being discharged later this week due to insurance cut. Patient states that she feels unsafe to go home and has requested an appeal process. Patient also continues with complaints of neuropathy type burning bilateral hands and feet. Patient using frequent when necessary medications for both pain and nausea. - Constitutional Vitals: Temp Pulse Resp BP Pulse Ox 97.4 F L 114 16 149/103 97 04/16/19 07:10 04/16/19 07:10 04/16/19 07:10 04/16/19 07:10 04/16/19 07:10 General appearance: Present: cooperative, A&O X 3, pleasant, answers questions appropriately - Head Head exam: Present: atraumatic, normocephalic - Eye Eye exam: Present: PERRL, conjuntiva pink, sclera anicteric Pupils: Present: PERRL - Neck Neck exam general surgery: Present: supple, trachea midline. Absent: lymphadenopathy - Respiratory Respiratory exam: Present: CTAB. Absent: accessory muscle use, rales, rhonchi, wheezes - Cardiovascular Cardiovascular exam: Present: RRR, +S1, +S2. Absent: diastolic murmur, gallop, rubs, systolic murmur - GI/Abdominal GI/Abdominal exam: Present: normal bowel sounds, soft, no peritoneal signs. Absent: distended, tenderness - Extremities Exam Extremities exam: Present: warm, radial pulses palpable and symmetrical. Absent: calf tenderness, cyanotic, pedal edema - Neurological Exam Neurological exam: Present: CN II-XII intact, oriented X3, no focal deficits. Absent: pronater drift, facial droop, speech deficit - Skin Skin exam: Present: dry, intact Internal Medicine: Result - Labs CBC & Chem 7: 04/09/19 05:35 04/12/19 09:00 Consult Discharge Plan - Plan Referrals: Kristen Griffiths CNP [Primary Care Provider] -
[2019-04-16 13:18] LABS: Bilirubin,Urine Negative (Negative); Blood,Urine Negative (Negative); Clarity,Urine Clear (Clear); Color,Urine Yellow (Yellow); Glucose,Urine (UA) Normal (Normal); Ketones,Urine Negative (Negative); Leukocyte Esterase,Urine Negative (Negative); Nitrite,Urine Negative (Negative); PH,Urine 6.5 pH Units (5.0-8.0); Protein,Urine Negative (Neg-Trace); Specific Gravity,Urine 1.015 (1.010-1.025); Urobilinogen,Urine Normal (Normal)
[2019-04-16] MEDS: Acetaminophen 325 MG TABLET PO PRN (16:19)
[2019-04-17] MEDS: traMADol 50 MG TABLET PO PRN ×2 (05:40→21:53)
[2019-04-17 06:39] LABS: Basophils # 0.1 K/mcL (0.0-0.2); Basophils % 1.1 %; Eosinophils # 0.1 K/mcL (0.0-0.6); Eosinophils % 2.3 %; Hematocrit 30.3 % (35.3-44.9); Hemoglobin 9.9 g/dL (11.5-15.4); Immature Granulocytes % 0.5 % (0-4); Lymphocytes # 1.8 K/mcL (0.6-4.6); Lymphocytes % 29.5 %; Mean Corpuscular HGB Conc 32.7 g/dL (31.6-35.5); Mean Corpuscular Hemoglobin 33.4 pg (28.0-33.3); Mean Corpuscular Volume 102.4 fL (83.0-100.0); Mean Platelet Volume 9.8 fL (9.4-12.4); Monocytes # 0.7 K/mcL (0.0-1.3); Monocytes % 10.6 %; Neutrophils # 3.5 K/mcL (1.6-8.9); Platelet Count 292 K/mcL (140-400); Red Blood Count 2.96 M/mcL (3.82-4.97); Red Cell Distribution Width 14.1 % (11.5-14.5); White Blood Count 6.2 K/mcL (4.3-11.1)
[2019-04-17 06:53] LABS: Alanine Aminotransferase 21 Units/L (7-52); Albumin 2.9 g/dL (3.5-5.7); Albumin/Globulin Ratio 1.2 (1.1-2.2); Alkaline Phosphatase 82 Units/L (34-104); Aspartate Amino Transferase 40 Units/L (13-39); BUN/Creatinine Ratio 24 (6-26); Bilirubin,Total 0.6 mg/dL (0.3-1.0); Blood Urea Nitrogen 10 mg/dL (6-20); Calcium 8.6 mg/dL (8.6-10.3); Carbon Dioxide 28 mEq/L (23-29); Chloride 102 mEq/L (98-107); Globulin 2.5 g/dL (2.4-3.5); Glucose 93 mg/dL (70-105); Magnesium 1.5 mg/dL (1.6-2.6); Osmolality,Calculated 283 (280-300); Potassium 4.1 mEq/L (3.5-5.1); Sodium 137 mEq/L (136-145); Total Protein 5.4 g/dL (6.4-8.9); eGFR For African Americans > 60 (> 60); eGFR For Non-African Americans > 60 (> 60)
[2019-04-17] MEDS ORDERED: traMADol 50 MG TABLET PO PRN (08:40)
[2019-04-17] MEDS: *HR* Enoxaparin 40 MG/0.4 ML SYRINGE SQ SCH (09:05)
[2019-04-17] MEDS: Folic Acid 1 MG TABLET PO SCH (09:06)
[2019-04-17] MEDS: Aspirin Enteric Coated 81 MG Tablet PO SCH (09:06)
[2019-04-17] MEDS: Thiamine (B-1) 100 MG TABLET PO SCH (09:06)
[2019-04-17] MEDS: Lisinopril 20 MG TABLET PO SCH (09:07)
[2019-04-17] MEDS: Gabapentin 300 MG CAPSULE PO SCH ×4 (09:07→21:52)
[2019-04-17] MEDS: Nicotine 21 MG PATCH.TD24 TD SCH (09:07)
--- NOTE | 2019-04-17 09:27 | Internal Med Progress Note ---
Date of Encounter: 04/17/19 Time of Encounter: 09:25 - Assessment and plan (1) Weakness Current Visit: Yes Status: Acute Assessment and plan: Patient continues with complaints of weakness. Therapy reports patient has poor balance with continued needs for assistance and remains a fall risk. Patient states she has difficulty with her balance due to her inability to feel the floor, which is secondary to her neuropathy. (2) Alcohol abuse Current Visit: Yes Status: Chronic Assessment and plan: No acute issues. Patient has been appropriate during her stay. We will continue to monitor and continue with current medications. 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 We will continue with current gabapentin dosing. (3) Peripheral neuropathy Current Visit: Yes Status: Chronic Assessment and plan: Patient continues with complaints of burning type neuropathy of bilateral hands and feet. We continue on current gabapentin dosing. Patient continues on tramadol for pain but states that has minimal effect. We will begin to wean tramadol dosing Qualifiers: Peripheral neuropathy type: polyneuropathy, alcohol-induced Qualified Code(s): G62.1 - Alcoholic polyneuropathy (4) Hypertension Current Visit: Yes Status: Chronic Assessment and plan: Today his blood pressure has improved with systolic blood pressure ranging between 140-160 on readings over the past 24 hours. Denies any chest discomforts of palpitations. Denies dizziness. Patient's blood pressure has been better. We will discontinue Lasix and continue on lower dose of lisinopril Qualifiers: Hypertension type: essential hypertension Qualified Code(s): I10 - Essential (primary) hypertension - Time Spent With Patient less than 15 minutes - Subjective Interval history: Patient appears relaxed and currently denies any dizziness or palpitations. Patient's blood pressure has improved today with most readings showing systolic of 140-150. Today's blood pressure reflects a decrease in lisinopril and having her Lasix discontinued. Patient has stated concerns about being discharged later this week due to insurance cut. Patient states that she feels unsafe to go home and has requested an appeal process. Patient was informed that she has been giving 3 more days per insurance. Therapy has discussed possible home visit Patient also continues with complaints of neuropathy type burning bilateral hands and feet. Patient using frequent when necessary medications for both pain and nausea. - Constitutional Vitals: Temp Pulse Resp BP Pulse Ox 98.1 F 108 20 128/89 98 04/17/19 07:25 04/17/19 07:25 04/17/19 07:25 04/17/19 07:40 04/17/19 07:25 General appearance: Present: cooperative, A&O X 3, pleasant, answers questions appropriately - Head Head exam: Present: atraumatic, normocephalic - Eye Eye exam: Present: PERRL, conjuntiva pink, sclera anicteric Pupils: Present: PERRL - Neck Neck exam general surgery: Present: supple, trachea midline. Absent: lymphadenopathy - Respiratory Respiratory exam: Present: decreased breath sounds, CTAB. Absent: accessory muscle use, rales, rhonchi, wheezes - Cardiovascular Cardiovascular exam: Present: RRR, +S1, +S2. Absent: diastolic murmur, gallop, rubs, systolic murmur - GI/Abdominal GI/Abdominal exam: Present: normal bowel sounds, soft, no peritoneal signs. Absent: distended, tenderness - Extremities Exam Extremities exam: Present: warm, radial pulses palpable and symmetrical. Absent: calf tenderness, cyanotic, pedal edema - Neurological Exam Neurological exam: Present: CN II-XII intact, oriented X3, no focal deficits. Absent: pronater drift, facial droop, speech deficit - Skin Skin exam: Present: dry, intact Internal Medicine: Result - Labs CBC & Chem 7: 04/17/19 06:08 04/17/19 06:08 Labs: Short CBC 04/17/19 Range/Units 06:08 WBC 6.2 (4.3-11.1) K/mcL Hgb 9.9 L (11.5-15.4) g/dL Hct 30.3 L (35.3-44.9) % Plt Count 292 (140-400) K/mcL Neutrophils # 3.5 (1.6-8.9) K/mcL BMP 04/17/19 06:08 Sodium 137 Potassium 4.1 Chloride 102 Carbon Dioxide 28 BUN 10 Creatinine 0.42 L Glucose 93 Calcium 8.6 Liver Function 04/17/19 Range/Units 06:08 Total Bilirubin 0.6 (0.3-1.0) mg/dL AST 40 H (13-39) Units/L ALT 21 (7-52) Units/L Alkaline Phosphatase 82 (34-104) Units/L Albumin 2.9 L (3.5-5.7) g/dL Urine 04/16/19 Range/Units 10:24 Urine Color Yellow (Yellow) Urine Clarity Clear (Clear) Urine pH 6.5 (5.0-8.0) pH Units Ur Specific [place] 1.015 (1.010-1.025) Urine Protein Negative (Neg-Trace) mg/dL Urine Glucose (UA) Normal (Normal) mg/dL Consult Discharge Plan - Plan Referrals: Kristen Griffiths, AMY [Primary Care Provider] -
[2019-04-17] MEDS: Acetaminophen 325 MG TABLET PO PRN ×2 (10:00→15:21)
[2019-04-17] MEDS: *HR* LORazepam 0.5 MG TABLET PO PRN ×2 (10:01→21:52)
[2019-04-17] MEDS: Ondansetron ODT 4 MG TAB.RAPDIS SL PRN (10:01)
[2019-04-17] MEDS: 0.9 % Sodium Chloride 1,000 ML IV SCH ×2 (18:09→23:10)
[2019-04-18] MEDS: Acetaminophen 325 MG TABLET PO PRN ×2 (06:13→22:28)
[2019-04-18] MEDS: hydrALAZINE 10 MG TABLET PO PRN (06:54)
[2019-04-18] MEDS: *HR* Enoxaparin 40 MG/0.4 ML SYRINGE SQ SCH (08:15)
[2019-04-18] MEDS: Thiamine (B-1) 100 MG TABLET PO SCH (08:15)
[2019-04-18] MEDS: Aspirin Enteric Coated 81 MG Tablet PO SCH (08:15)
[2019-04-18] MEDS: Folic Acid 1 MG TABLET PO SCH (08:15)
[2019-04-18] MEDS: Gabapentin 300 MG CAPSULE PO SCH ×2 (08:15→13:34)
[2019-04-18] MEDS: Nicotine 21 MG PATCH.TD24 TD SCH (08:16)
[2019-04-18] MEDS: Lisinopril 20 MG TABLET PO SCH (08:16)
[2019-04-18] MEDS: traMADol 50 MG TABLET PO PRN ×2 (08:28→20:28)
[2019-04-18] MEDS: *HR* LORazepam 0.5 MG TABLET PO PRN ×2 (08:29→20:28)
--- NOTE | 2019-04-18 15:02 | Internal Med Progress Note ---
Date of Encounter: 04/19/19 Time of Encounter: 14:20 - Subjective Interval history: - Assessment and plan (1) Weakness Current Visit: Yes Status: Acute Assessment and plan: Patient continues with complaints of weakness. Therapy reports patient has poor balance with continued needs for assistance and remains a fall risk. Patient states she has difficulty with her balance due to her inability to feel the floor, which is secondary to her neuropathy. pt states started about a year ago (2) Alcohol abuse Current Visit: Yes Status: Chronic Assessment and plan: No acute issues. Patient has been appropriate during her stay. We will continue to monitor and continue with current medications. 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 We will continue with current gabapentin but reduce dose from 300 mg to 100 mg due to her labile BP. (3) Peripheral neuropathy Current Visit: Yes Status: Chronic Assessment and plan: Patient continues with complaints of burning type neuropathy of bilateral hands and feet. We continue on current gabapentin at lower dose due to bp. . Patient continues on tramadol for pain but states that has minimal effect at times, sometimes states it works well. states has had severe neuropathy about 1 year worse in past month will check b12 and iron levels will check tsh Qualifiers: Peripheral neuropathy type: polyneuropathy, alcohol-induced Qualified Code(s): G62.1 - Alcoholic polyneuropathy (4) Hypertension Current Visit: Yes Status: Chronic Assessment and plan: Today his blood pressure has improved with systolic blood pressure ranging between 140-160 on readings over the past 24 hours. Denies any chest discomforts of palpitations. Denies dizziness denies SOTO denies CP she has had severe lability in her BP she has had trending of hypertension in [place] and hypotension in am states has been on lisinopril for many years will DC lisinopril for now and dc prn hydralazine will use instead clonidine patch start at 0.1 and dose up will continue to monitor Qualifiers: Hypertension type: essential hypertension Qualified Code(s): I10 - Essential (primary) hypertension - Time Spent With Patient less than 15 minutes - Subjective Interval history: Pt is participating in PT she remains with severe weakness and neuropathy sx systolic bp has been very labile 170s in [place] and 80s in am She has not had any other new sx she is anxious at times she is eating - EXAM General appearance: Present: WF appears chronic ill looks older than stated age alert and 0 x 3 cooperative, anxious and irritable at times but overall pleasant, answers questions appropriately - Head Head exam: Present: atraumatic, normocephalic - Eye Eye exam: Present: PERRL, conjuntiva pink, sclera anicteric Pupils: Present: PERRL - Neck Neck exam general surgery: Present: supple, trachea midline. Absent: lymphadenopathy - Respiratory Respiratory exam: Present: decreased breath sounds, CTAB. Absent: accessory muscle use, rales, rhonchi, wheezes - Cardiovascular Cardiovascular exam: Present: RRR, +S1, +S2. distant Absent: diastolic murmur, gallop, rubs, systolic murmur - GI/Abdominal GI/Abdominal exam: Present: normal bowel sounds, soft, no peritoneal signs. mild distention liver edge not palpable no abd bruit - Extremities Exam Extremities exam: Present: warm, radial pulses palpable and symmetrical. joints are not inflamed or deformed muscle mass symmetric but diminished - Neurological Exam Neurological exam: Present: CN II-XII intact, oriented X3, no focal deficits. Absent: pronater drift, facial droop, speech deficit - Skin Skin exam: Present: dry, has multiple senile hem and small skin tears mi to forearms and hands skin is overall thin - Constitutional Vitals: Temp Pulse Resp BP Pulse Ox 98.1 F 108 18 116/82 95 04/18/19 07:06 04/18/19 10:00 04/18/19 10:00 04/18/19 10:00 04/18/19 10:00 General appearance: Present: cooperative, A&O X 3, pleasant, answers questions appropriately Internal Medicine: Result - Labs CBC & Chem 7: 04/17/19 06:08 04/17/19 06:08 Labs: Short CBC 04/09/19 04/16/19 04/17/19 Range/Units 05:35 10:24 06:08 RBC 2.68 L 2.96 L (3.82-4.97) M/mcL MCV 104.9 H 102.4 H (83.0-100.0) fL MCH 34.3 H 33.4 H (28.0-33.3) pg MCHC 32.7 32.7 (31.6-35.5) g/dL RDW 15.7 H 14.1 (11.5-14.5) % MPV 9.4 9.8 (9.4-12.4) fL Immature Gran % 0.9 0.5 (0-4) % Seg Neutrophils % 48.6 56.0 % Lymphocytes % 37.4 29.5 % Monocytes % 9.6 10.6 % Eosinophils % 2.4 2.3 % Basophils % 1.1 1.1 % Lymphocytes # 2.5 1.8 (0.6-4.6) K/mcL Monocytes # 0.6 0.7 (0.0-1.3) K/mcL Eosinophils # 0.2 0.1 (0.0-0.6) K/mcL Basophils # 0.1 0.1 (0.0-0.2) K/mcL Urine Color Yellow (Yellow) Urine Clarity Clear (Clear) Urine pH 6.5 (5.0-8.0) pH Units Ur Specific [place] 1.015 (1.010-1.025) Urine Protein Negative (Neg-Trace) mg/dL Urine Glucose (UA) Normal (Normal) mg/dL Urine Ketones Negative (Negative) mg/dL Urine Blood Negative (Negative) Urine Nitrite Negative (Negative) Urine Bilirubin Negative (Negative) Urine Urobilinogen Normal (Normal) mg/dL Ur Leukocyte Esterase Negative (Negative) Ur Culture Indicated? NO (NO) Consult Discharge Plan - Plan Referrals: Kristen Griffiths, [employer] [Primary Care Provider] -
[2019-04-18] MEDS: Gabapentin 100 MG CAPSULE PO SCH ×2 (16:56→20:29)
[2019-04-18] MEDS ORDERED: CloNIDine Patch 0.1 MG PATCH (WEEKLY) TD SCH (18:00)
[2019-04-18] MEDS: Melatonin 3 MG TABLET PO PRN (22:25)
[2019-04-19] MEDS ORDERED: CloNIDine Patch 0.1 MG PATCH (WEEKLY) TD ONE (04:30)
[2019-04-19] MEDS: Nicotine 21 MG PATCH.TD24 TD SCH (08:27)
[2019-04-19] MEDS: Aspirin Enteric Coated 81 MG Tablet PO SCH (08:28)
[2019-04-19] MEDS: Gabapentin 100 MG CAPSULE PO SCH ×4 (08:28→20:02)
[2019-04-19] MEDS: *HR* Enoxaparin 40 MG/0.4 ML SYRINGE SQ SCH (08:28)
[2019-04-19] MEDS: Thiamine (B-1) 100 MG TABLET PO SCH (08:28)
[2019-04-19] MEDS: Folic Acid 1 MG TABLET PO SCH (08:28)
[2019-04-19] MEDS: *HR* LORazepam 0.5 MG TABLET PO PRN ×2 (08:33→20:01)
[2019-04-19] MEDS: traMADol 50 MG TABLET PO PRN ×2 (08:33→20:01)
[2019-04-19 09:57] LABS: Thyroid Stimulating Hormone 2.454 mcIU/mL (0.340-5.600)
[2019-04-19] MEDS ORDERED: Isovue-370 500 ML BOTTLE IVP ONE ×2 (15:49→15:51)
--- NOTE | 2019-04-19 16:19 | Internal Med Progress Note ---
Date of Encounter: 04/19/19 Time of Encounter: 16:00 - Subjective Interval history: - Assessment and plan (1) Weakness Current Visit: Yes Status: Acute Assessment and plan: Patient continues with complaints of weakness. Therapy reports patient has poor balance with continued needs for assistance and remains a fall risk. Patient states she has difficulty with her balance due to her inability to feel the floor, which is secondary to her neuropathy. pt states started about a year ago (2) Alcohol abuse Current Visit: Yes Status: Chronic Assessment and plan: No acute issues. Patient has been appropriate during her stay. We will continue to monitor and continue with current medications. 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 We will continue with current gabapentin but reduce dose from 300 mg to 100 mg due to her labile BP. (3) Peripheral neuropathy Current Visit: Yes Status: Chronic Assessment and plan: Patient continues with complaints of burning type neuropathy of bilateral hands and feet. We continue on current gabapentin at lower dose due to bp. . Patient continues on tramadol for pain but states that has minimal effect at times, sometimes states it works well. states has had severe neuropathy about 1 year worse in past month b12 low normal iron low and transferrin also low will start PO iron and ascorbic acid Qualifiers: Peripheral neuropathy type: polyneuropathy, alcohol-induced Qualified Code(s): G62.1 - Alcoholic polyneuropathy (4) Hypertension Current Visit: Yes Status: Chronic Assessment and plan: Today on clonidine patch did not have morning Hypotension but needs improve control of systolic and HR elevated Denies any chest discomforts of palpitations. 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 cm aa that was eval again recent at [place] with ct angio and has hx of previous ovarian ca at age 30 with JAYE has mild abd distention will obtain ct chest abd pelvis will continue to monitor Qualifiers: Hypertension type: essential hypertension Qualified Code(s): I10 - Essential (primary) hypertension - Time Spent With Patient less than 15 minutes - Subjective Interval history: today pt BP did not go low in am as it has last several days but systolic control not optimum and HR 100-120 she remains with severe weakness and neuropathy sx systolic bp has been very labile 170s in [place] and 80s in am She has not had any other new sx she is anxious at times she is eating - EXAM General appearance: Present: WF appears chronic ill looks older than stated age alert and 0 x 3 cooperative, anxious and irritable at times but overall pleasant, answers questions appropriately - Head Head exam: Present: atraumatic, normocephalic - Eye Eye exam: Present: PERRL, conjuntiva pink, sclera anicteric Pupils: Present: PERRL - Neck Neck exam general surgery: Present: supple, trachea midline. Absent: lymp hadenopathy - Respiratory Respiratory exam: Present: decreased breath sounds, CTAB. Absent: accessory muscle use, rales, rhonchi, wheezes - Cardiovascular Cardiovascular exam: Present: RRR, +S1, +S2. distant Absent: diastolic murmur, gallop, rubs, systolic murmur - GI/Abdominal GI/Abdominal exam: Present: normal bowel sounds, soft, no peritoneal signs. mild distention liver edge not palpable no abd bruit - Extremities Exam Extremities exam: Present: warm, radial pulses palpable and symmetrical. joints are not inflamed or deformed muscle mass symmetric but diminished - Neurological Exam Neurological exam: Present: CN II-XII intact, oriented X3, no focal deficits. Absent: pronater drift, facial droop, speech deficit - Skin Skin exam: Present: dry, has multiple senile hem and small skin tears mi to forearms and hands skin is overall thin - Constitutional Vitals: Temp Pulse Resp BP Pulse Ox 98.6 F 99 18 160/100 99 04/19/19 07:18 04/19/19 07:18 04/19/19 07:18 04/19/19 07:18 04/19/19 07:18 General appearance: Present: cooperative, A&O X 3, pleasant, answers questions appropriately Internal Medicine: Result - Labs CBC & Chem 7: 04/17/19 06:08 04/17/19 06:08 - Impressions Impressions Chest X-Ray 04/18/19 14:51 IMPRESSION: No acute cardiopulmonary disease. D/ / Kelvin Sage MD / Kelvin Sage MD Interpreting Provider: Kelvin Sage MD Consult Discharge Plan - Plan Referrals: Kristen Griffiths, [facility] [Primary Care Provider] -
[2019-04-19] MEDS ORDERED: Isovue-370 500 ML BOTTLE PO ONE (16:53)
[2019-04-19] MEDS: Melatonin 3 MG TABLET PO PRN (20:01)
[2019-04-19] MEDS: Psyllium 1 PACKET POWD.PACK PO SCH (20:02)
[2019-04-19] MEDS: Acetaminophen 325 MG TABLET PO PRN (22:15)
[2019-04-20] MEDS: *HR* Enoxaparin 40 MG/0.4 ML SYRINGE SQ SCH (08:49)
[2019-04-20] MEDS: Nicotine 21 MG PATCH.TD24 TD SCH (08:49)
[2019-04-20] MEDS: Gabapentin 100 MG CAPSULE PO SCH ×4 (08:51→21:02)
[2019-04-20] MEDS: Thiamine (B-1) 100 MG TABLET PO SCH (08:51)
[2019-04-20] MEDS: Acetaminophen 325 MG TABLET PO PRN (08:51)
[2019-04-20] MEDS: Aspirin Enteric Coated 81 MG Tablet PO SCH (08:51)
[2019-04-20] MEDS: Ondansetron ODT 4 MG TAB.RAPDIS SL PRN (08:51)
[2019-04-20] MEDS: Folic Acid 1 MG TABLET PO SCH (08:51)
[2019-04-20] MEDS: Psyllium 1 PACKET POWD.PACK PO SCH (08:52)
--- NOTE | 2019-04-20 09:32 | Internal Med Progress Note ---
Date of Encounter: 04/20/19 Time of Encounter: 09:29 - Assessment and plan (1) Weakness Current Visit: Yes Status: Acute Assessment and plan: Patient continues with complaints of weakness. Therapy reports patient has poor balance with continued needs for assistance and remains a fall risk. Patient states she has difficulty with her balance due to her inability to feel the floor, which is secondary to her neuropathy. Patient being prepared for DC later this week. (2) Alcohol abuse Current Visit: Yes Status: Chronic Assessment and plan: No acute issues. Patient has been appropriate during her stay. We will continue to monitor and continue with current medications. 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 We will continue with current gabapentin dosing. (3) Peripheral neuropathy Current Visit: Yes Status: Chronic Assessment and plan: Patient continues with complaints of burning type neuropathy of bilateral hands and feet. She continues to have balance issues. We continue on current gabapen tin dosing. Patient continues on tramadol for pain but states that has minimal effect. Qualifiers: Peripheral neuropathy type: polyneuropathy, alcohol-induced Qualified Code(s): G62.1 - Alcoholic polyneuropathy (4) Hypertension Current Visit: Yes Status: Chronic Assessment and plan: Today his blood pressure has improved with systolic blood pressure ranging between 140-160 on readings over the weekend and was started on Clonidine patch and appears better controlled with no episodes of hypotension. Denies any chest discomforts of palpitations. Patient's blood pressure has been better. Qualifiers: Hypertension type: essential hypertension Qualified Code(s): I10 - Essential (primary) hypertension - Time Spent With Patient less than 15 minutes - Subjective Interval history: Patient appears relaxed and currently denies any dizziness or palpitations. Patient's blood pressure has improved today with most readings showing systolic of 140-150. Today's blood pressure reflects her being started on Clonidine p day [facility]. Patient had a CT of CAP with following results: CT/CT chest w con IMPRESSION: 1. No acute abnormality in the chest, abdomen, or pelvis. 2. Mildly ectatic ascending thoracic aorta. No evidence of dissection or other acute vascular abnormality. 3. Mild emphysematous changes. 4. Coronary artery atherosclerotic vascular disease. 5. 6 mm hypodense left thyroid nodule. See recommendations below. 6. Severe diffuse hepatic steatosis and mild hepatomegaly. CXR shows no acute process. Patient has stated concerns about being discharged later this week due to insurance cut. Patient states that she feels unsafe to go home and has requested an another appeal process. Patient was given an extension of several days and continues with therapy. States that she continues to have poor balance, but states that she has difficulty feeling the floor due to her neuropathy. Patient also continues with complaints of neuropathy type burning bilateral hands and feet. Patient using frequent when necessary medications for both pain and neuropathy - Constitutional Vitals: Temp Pulse Resp BP Pulse Ox 97.9 F 85 16 130/83 98 04/20/19 06:49 04/20/19 06:49 04/20/19 06:49 04/20/19 06:49 04/20/19 06:49 General appearance: Present: cooperative, A&O X 3, pleasant, answers questions appropriately - Head Head exam: Present: atraumatic, normocephalic - Eye Eye exam: Present: PERRL, conjuntiva pink, sclera anicteric Pupils: Present: PERRL - Neck Neck exam general surgery: Present: supple, trachea midline. Absent: lymphadenopathy - Respiratory Respiratory exam: Present: decreased breath sounds, CTAB. Absent: accessory muscle use, rales, rhonchi, wheezes - Cardiovascular Cardiovascular exam: Present: RRR, +S1, +S2. Absent: diastolic murmur, gallop, rubs, systolic murmur - GI/Abdominal GI/Abdominal exam: Present: normal bowel sounds, soft, no peritoneal signs. Absent: distended, tenderness - Extremities Exam Extremities exam: Present: warm, radial pulses palpable and symmetrical. Absent: calf tenderness, cyanotic, pedal edema - Neurological Exam Neurological exam: Present: CN II-XII intact, oriented X3, no focal deficits. Absent: pronater drift, facial droop, speech deficit Additional comments: Patient continues with c/o numbness and tingling type pain to bilateral feet to the ankles and bilateral hands/wrist. - Skin Skin exam: Present: dry, intact Internal Medicine: Result - Labs CBC & Chem 7: 04/17/19 06:08 04/17/19 06:08 - Impressions Impressions Chest CT 04/19/19 15:49 IMPRESSION: 1. No acute abnormality in the chest, abdomen, or pelvis. 2. Mildly ectatic ascending thoracic aorta. No evidence of dissection or other acute vascular abnormality. 3. Mild emphysematous changes. 4. Coronary artery atherosclerotic vascular disease. 5. 6 mm hypodense left thyroid nodule. See recommendations below. 6. Severe diffuse hepatic steatosis and mild hepatomegaly. RECOMMENDATIONS: Managing Incidental Thyroid Nodule Detected at CT or MRI or US 1. Further evaluation by thyroid Ultrasound recommended for these incidental nodules: Patient Age 18 years or less - Nodule of any size Patient Age 19-34 years old - Nodule 1 cm in size or greater Patient Age 35 years or more - Nodule 1.5 cm in size or greater 2. Follow up thyroid ultrasound also recommend in these scenarios - Solitary nodule with high risk imaging features (locally invasive nodule or suspicious lymph nodes) - Heterogeneous, enlarged thyroid gland. - Increased uptake on PET 3. No further imaging is recommended in the following scenarios - Any nodule not meeting above criteria. - Those patients with limited life expectancy or significant Co-morbidities. Note: These recommendations do not apply to pts. w/ increased risk for thyroid cancer or pts. with symptomatic thyroid disease. Recommendations for f/u of Incidental Thyroid Nodules (ITN) found on CT, MR, NM and Extrathyroidal US are based upon the ACR white paper and [place]illiard 3-tiered system for managing ITNs: J Am Rose Radiol. 2015 Sep;12(2): 143-50 D/ / Emil Brewer MD / Emil Brewer MD Interpreting Provider: Emil Brewer MD Abdomen/Pelvis CT 04/19/19 15:51 IMPRESSION: 1. No acute abnormality in the chest, abdomen, or pelvis. 2. Mildly ectatic ascending thoracic aorta. No evidence of dissection or other acute vascular abnormality. 3. Mild emphysematous changes. 4. Coronary artery atherosclerotic vascular disease. 5. 6 mm hypodense left thyroid nodule. See recommendations below. 6. Severe diffuse hepatic steatosis and mild hepatomegaly. RECOMMENDATIONS: Managing Incidental Thyroid Nodule Detected at CT or MRI or US 1. Further evaluation by thyroid Ultrasound recommended for these incidental nodules: Patient Age 18 years or less - Nodule of any size Patient Age 19-34 years old - Nodule 1 cm in size or greater Patient Age 35 years or more - Nodule 1.5 cm in size or greater 2. Follow up thyroid ultrasound also recommend in these scenarios - Solitary nodule with high risk imaging features (locally invasive nodule or suspicious lymph nodes) - Heterogeneous, enlarged thyroid gland. - Increased uptake on PET 3. No further imaging is recommended in the following scenarios - Any nodule not meeting above criteria. - Those patients with limited life expectancy or significant Co-morbidities. Note: These recommendations do not apply to pts. w/ increased risk for thyroid cancer or pts. with symptomatic thyroid disease. Recommendations for f/u of Incidental Thyroid Nodules (ITN) found on CT, MR, NM and Extrathyroidal US are based upon the ACR white paper and Hilliard 3-tiered system for managing ITNs: J Am Rose Radiol. 2015 Sep;12(2): 143-50 D/ / Emil Brewer MD / Emil Brewer MD Interpreting Provider: Emil Brewer MD Consult Discharge Plan - Plan Referrals: Kristen Griffiths, [facility] [Primary Care Provider] -
[2019-04-20] MEDS: Melatonin 3 MG TABLET PO PRN (21:02)
[2019-04-20] MEDS: traMADol 50 MG TABLET PO PRN (21:03)
[2019-04-21 06:46] VITALS: BP 115/75
[2019-04-21] MEDS: *HR* Enoxaparin 40 MG/0.4 ML SYRINGE SQ SCH (08:20)
[2019-04-21] MEDS: Aspirin Enteric Coated 81 MG Tablet PO SCH (08:20)
[2019-04-21] MEDS: Nicotine 21 MG PATCH.TD24 TD SCH (08:20)
[2019-04-21] MEDS: Thiamine (B-1) 100 MG TABLET PO SCH (08:20)
[2019-04-21] MEDS: Gabapentin 100 MG CAPSULE PO SCH ×3 (08:20→16:37)
[2019-04-21] MEDS: Folic Acid 1 MG TABLET PO SCH (08:20)
--- NOTE | 2019-04-21 09:20 | Physician Discharge Referral ---
Home Health/Hosp Referral Info Transfer to: Home Health Provider in Charge Post Discharge: PCP - Diagnosis (1) Peripheral neuropathy Priority: Primary Status: Chronic (2) Weakness Priority: Primary Status: Acute (3) Smoking addiction Priority: Secondary Status: Acute (4) Alcohol abuse Priority: Secondary Status: Chronic (5) Hypertension Priority: Secondary Status: Chronic - Respiratory Orders Smoking Cessation: Smoking cessation has been advised. For more information, call the [place] Tobacco Quit Line at 4-752-MLRB-NOW. - Diet/Nutrition Diet/Nutrition Orders: Regular - Activity Activity Orders: Ambulate, Walker - Services Needed Following services are medically necessary services: Nursing, Physical Therapy, Occupational Therapy - Transfer Medications Home Medications: Aspirin [Lo-Dose Aspirin EC] 81 mg PO DAILY 04/03/19 [History] Furosemide [Lasix] 40 mg PO QAM 04/03/19 [History] Lisinopril [Zestril] 40 mg PO DAILY 04/03/19 [History] Pantoprazole Sodium [Protonix] 40 mg PO BID 04/03/19 [History] Potassium Chloride [K-Tab ER] 20 meq PO DAILY 04/03/19 [History] Promethazine [Phenergan] 25 mg PO Q6HR PRN 04/03/19 [History] Folic Acid 1 mg PO DAILY #30 tablet 04/08/19 [Rx] Gabapentin [Neurontin] 300 mg PO BID #14 capsule 04/08/19 [Rx] LORazepam [Ativan] 0.5 mg PO BID PRN 7 Days #14 tablet 04/08/19 [Rx] Nicotine Patch [Nicoderm] 21 mg TD DAILY patch.[id number] 04/08/19 [Rx] Thiamine (B-1) [Vitamin B-1] 100 mg PO DAILY #30 tablet 04/08/19 [Rx] Allergies/Adverse Reactions: Allergy/AdvReac Type Severity Reaction Status Date / Time citalopram [From Celexa] Allergy Vomiting Verified 04/03/19 11:21 duloxetine [From Cymbalta] Allergy Vomiting Verified 04/03/19 11:21 acetaminophen [From Nancy] AdvReac Itching Verified 04/11/19 07:43 hydrocodone [From Nancy] AdvReac Itching Verified 04/11/19 07:43 Certification: Further, I certify that my clinical findings support that this patient is homebound (i.e. absences from home require considerable and taxing effort and are for medical reasons or taoism services or infrequently or short duration when for other reasons) because: Homebound Reason: Patient requires assistance of a person or device to safely leave home, Post-surgery restriction and or conditions limit ability to leave home, Leaving home requires considerable and taxing effort due to condition Attestation: My signature below is to certify that this patient is under my care and that I, or nurse practitioner, or a physician's hotel administrative assistant working with me, has a [id number] encounter with this patient.
--- NOTE | 2019-04-21 09:30 | Discharge Summary ---
Date of Encounter: 04/21/19 Time of Encounter: 09:21 - Discharge Diagnosis (1) Peripheral neuropathy Priority: Primary Status: Chronic Comments: Continue home health therapy. Follow up with PCP and neurologist. Qualifiers: Peripheral neuropathy type: polyneuropathy, alcohol-induced Qualified Code(s): G62.1 - Alcoholic polyneuropathy (2) Weakness Priority: Secondary Status: Acute Comments: Improving. Continue home health PT and OT. Follow up with PCP and neurologist. (3) Smoking addiction Priority: Secondary Status: Acute Comments: Educated smoking cessation. Nicotine patch is prescribed. Follow up with PCP. (4) Alcohol abuse Priority: Secondary Status: Chronic Comments: Educated effects of alcohol and withdrawal symptoms. (5) Hypertension Priority: Secondary Status: Chronic Comments: Controlled with current medication. Monitor blood pressure. Was started on clonidine patch. Up with PCP. Qualifiers: Hypertension type: essential hypertension Qualified Code(s): I10 - Essential (primary) hypertension Hospital course: Ms. Canales is a 53 year old female who had onset of diffuse pain, especially chest and low back pain, about a month ago. She states that she had sudden onset of pain and burning sensation in her feet and hands which she thought was gout. She was admitted to [facility] and an extensive evaluation revealed peripheral neuropathy of uncertain etiology but possibly alcohol related. She was treated for alcohol withdrawal with [place] protocol even though she had not had alcoholic drink for 2- 3 weeks. She was noted to have fall risk and weakness and was thus transferred here for rehabilitation. She continued to complain of diffuse pains. She has a hiatal hernia and had reflux symptoms during her admission. She states that Zofran does not help at all and that she needs Phenergan. She was found to have an aneurysm of the aorta. This is apparently a thoracic and not dissecting. Note, thyroid function was found to be normal. Had ultrasound on neck today. Results pending. She states that she did not drink that long or heavily (although she had up to 13 ounces per day). She has not had alcoholic beverages for several weeks. She also stopped smoking about 2 weeks ago. She denies drug use. She lives at home with her and daughter. Discharging to home today. Will continue home health PT OT and nursing. Instructed to follow up with PCP in one week and neurologist as scheduled. Continues to ambulate with walker. Denies fever, chills, nausea vomiting or diarrhea. Denies shortness of breath or chest pain. Smoking cessation educated as well as effects of alcohol use. Discharge discussed with: patient, family, nurse, social work Time spent discussing smoking cessation with patient: more than 10 minutes - Time Spent with Patient Total time spent providing and/or coordinating discharge services: Time spent: Greater than 30 minutes - Discharge Medications Prescriptions: No Action Aspirin [Lo-Dose Aspirin EC] 81 mg PO DAILY Potassium Chloride [K-Tab ER] 20 meq PO DAILY Furosemide [Lasix] 40 mg PO QAM Lisinopril [Zestril] 40 mg PO DAILY Promethazine [Phenergan] 25 mg PO Q6HR PRN PRN Reason: UPSET STOMACH/NAUSEA Pantoprazole Sodium [Protonix] 40 mg PO BID Folic Acid 1 mg PO DAILY #30 tablet Gabapentin [Neurontin] 300 mg PO BID #14 capsule Nicotine Patch [Nicoderm] 21 mg TD DAILY patch.td24 Thiamine (B-1) [Vitamin B-1] 100 mg PO DAILY #30 tablet LORazepam [Ativan] 0.5 mg PO BID PRN 7 Days #14 tablet PRN Reason: Anxiety Home Medications: Aspirin [Lo-Dose Aspirin EC] 81 mg PO DAILY 04/03/19 [History] Lisinopril [Zestril] 40 mg PO DAILY 04/03/19 [History] Pantoprazole Sodium [Protonix] 40 mg PO BID 04/03/19 [History] Potassium Chloride [K-Tab ER] 20 meq PO DAILY 04/03/19 [History] Carvedilol [Coreg] 6.25 mg PO BIDWM #28 tablet 04/21/19 [Rx] CloNIDine Patch [Catapres-Tts] 0.2 mg TD QWEEK #2 patch.tdwk 04/21/19 [Rx] Ferrous Sulfate 325 mg PO BIDWM tablet 04/21/19 [Rx] Folic Acid 1 mg PO DAILY #30 tablet 04/21/19 [Rx] Gabapentin [Neurontin] 100 mg PO QID 14 Days #56 capsule 04/21/19 [Rx] LORazepam [Ativan] 0.5 mg PO BID PRN 7 Days #14 tablet 04/21/19 [Rx] Melatonin 3 mg PO HS PRN tablet 04/21/19 [Rx] Nicotine Patch [Nicoderm] 21 mg TD DAILY #14 patch.td24 04/21/19 [Rx] Promethazine [Phenergan] 25 mg PO Q12HR PRN 7 Days #10 tablet 04/21/19 [Rx] Psyllium [Metamucil Fiber Singles Packet] 1 packet PO BID powd.pack 04/21/19 [Rx] Thiamine (B-1) [Vitamin B-1] 100 mg PO DAILY #30 tablet 04/21/19 [Rx] Allergies/Adverse Reactions: Allergy/AdvReac Type Severity Reaction Status Date / Time citalopram [From Celexa] Allergy Vomiting Verified 04/03/19 11:21 duloxetine [From Cymbalta] Allergy Vomiting Verified 04/03/19 11:21 acetaminophen [From [place]] AdvReac Itching Verified 04/11/19 07:43 hydrocodone [From [place]] AdvReac Itching Verified 04/11/19 07:43 Date of admission: 04/08/19 19:05 Primary care physician: Kristen Griffiths CNP Consults: 04/08/19 21:34 Consult to Nutrition [CONS] Routine Comment: Consulting Provider: NUTRITION Reason for Dietary Consult: Other 04/08/19 22:36 Consult to Recreational Therapy [CONS] Routine Comment: Evaluate, develop and implement POC 04/09/19 06:00 Consult to Occupational Therapy [CONS] Routine Comment: Evaluate, develop and implement POC Reason for Consult: evaluate and treat Does patient have active BEDREST order?: Yes Is patient medically & hemodynamically stable?: No Patient assessed for mobility or mobilized this visit?: Yes Consult to Physical Therapy [CONS] Routine Comment: Evaluate, develop and implement POC Reason for Consult: evaluate and treat Does patient have active BEDREST order?: No Is patient medically & hemodynamically stable?: Yes Patient assessed for mobility or mobilized this visit?: Yes 04/09/19 22:36 Consult to [employer] [CONS] Routine Reason for SW Consult: discharge planning 04/15/19 12:51 Consult to Psychology [CONS] Routine Consulting Provider: Aly Schaefer Reason for Consult: Hx of ETOH abuse. Poor decision making Time Notified: 12:52 Call Completed: Yes Discharging clinician: Srinivas Shelton Anticipated date of discharge: 04/21/19 - Constitutional Vitals: Temp Pulse Resp BP Pulse Ox 97.5 F L 84 17 115/75 99 04/21/19 06:43 04/21/19 06:43 04/21/19 06:43 04/21/19 06:43 04/21/19 06:43 General appearance: Present: cooperative, A&O X 3, pleasant, answers questions appropriately - Head Head exam: Present: atraumatic, normocephalic - Eye Eye exam: Present: PERRL, conjuntiva pink, sclera anicteric Pupils: Present: PERRL - Neck Neck exam general surgery: Present: supple, trachea midline. Absent: l ymphadenopathy - Respiratory Respiratory exam: Present: CTAB. Absent: accessory muscle use, rales, rhonchi, wheezes - Cardiovascular Cardiovascular exam: Present: RRR, +S1, +S2. Absent: diastolic murmur, gallop, rubs, systolic murmur - GI/Abdominal GI/Abdominal exam: Present: normal bowel sounds, soft, no peritoneal signs. Absent: distended, tenderness - Extremities Exam Extremities exam: Present: warm, radial pulses palpable and symmetrical. Absent: calf tenderness, cyanotic, pedal edema - Neurological Exam Neurological exam: Present: CN II-XII intact, oriented X3, no focal deficits. Absent: pronater drift, facial droop, speech deficit - Skin Skin exam: Present: dry, intact - Patient Status Disposition: Home, Self-Care Condition: Good Functional capacity at discharge: uses cane/walker Overall status at discharge: patient is progressing back to baseline - Discharge Instructions Follow Up With: Kristen Griffiths, AMY [Primary Care Provider] - - Diet and Activity Activity: as per physical therapy Diet: advance to your usual diet
[2019-04-25] MEDS ORDERED: CloNIDine Patch 0.2 MG PATCH (WEEKLY) TD SCH (09:00)
== END 2019-04-21 17:00 | disposition home or self-care (01) | DRG 74 ==
LOC: INPGRE 19:05

== ENCOUNTER 2021-02-22 16:38 | Inpatient (IN) ==
[2021-02-24] MEDS ORDERED: Scopolamine Patch 1.5 MG PATCH.TD72 TD SCH (16:45)
[2021-02-24] MEDS: *HR* OxyCODONE Immed Rel 5 MG TABLET PO PRN ×2 (18:04→21:55)
[2021-02-24] MEDS: Ipratropium/Albuterol Neb 3 ML IH SCH (20:58)
[2021-02-24] MEDS ORDERED: Sennosides/Docusate Sodium TABLET PO SCH (21:00)
[2021-02-24] MEDS: Gabapentin 400 MG CAPSULE PO SCH (21:11)
[2021-02-24] MEDS: carvediloL 25 MG TABLET PO SCH (21:11)
[2021-02-24] MEDS: methocarbamoL 500 MG TABLET PO PRN (21:12)
[2021-02-24] MEDS: polyethylene glycoL 3350 17 GM POWD.PACK PO SCH (21:45)
[2021-02-25] MEDS: *HR* OxyCODONE Immed Rel 5 MG TABLET PO PRN ×4 (01:22→17:00)
[2021-02-25] MEDS: methocarbamoL 500 MG TABLET PO PRN ×3 (03:52→21:43)
[2021-02-25 05:18] LABS: Basophils # 0.1 K/mcL (0.0-0.2); Basophils % 0.5 %; Eosinophils # 0.2 K/mcL (0.0-0.6); Eosinophils % 2.3 %; Hematocrit 27.7 % (35.3-44.9); Hemoglobin 8.6 g/dL (11.5-15.4); Immature Granulocytes % 4.7 % (0-4); Lymphocytes # 1.7 K/mcL (0.6-4.6); Lymphocytes % 17.2 %; Mean Corpuscular Hemoglobin 26.5 pg (28.0-33.3); Mean Corpuscular Volume 85.5 fL (83.0-100.0); Mean Platelet Volume 10.3 fL (9.4-12.4); Monocytes # 0.9 K/mcL (0.0-1.3); Monocytes % 9.5 %; Neutrophils # 6.3 K/mcL (1.6-8.9); Platelet Count 318 K/mcL (140-400); Red Blood Count 3.24 M/mcL (3.82-4.97); Red Cell Distribution Width 15.9 % (11.5-14.5); Segmented Neutrophils % 65.8 %; White Blood Count 9.6 K/mcL (4.3-11.1)
[2021-02-25 05:34] LABS: BUN/Creatinine Ratio 28 (6-26); Blood Urea Nitrogen 14 mg/dL (6-20); Calcium 8.9 mg/dL (8.6-10.3); Carbon Dioxide 27 mEq/L (23-29); Chloride 98 mEq/L (98-107); Glucose 97 mg/dL (70-105); Osmolality,Calculated 276 (280-300); Potassium 4.2 mEq/L (3.5-5.1); Sodium 133 mEq/L (136-145); eGFR For African Americans > 60 (> 60); eGFR For Non-African Americans > 60 (> 60)
[2021-02-25] MEDS: diazePAM 2 MG TABLET PO PRN ×2 (05:51→14:32)
[2021-02-25] MEDS: *HR* Enoxaparin 40 MG/0.4 ML SYRINGE SQ SCH (05:52)
[2021-02-25] MEDS: BuPROPion XL (24 HR) 150 MG TABLET PO SCH (07:45)
[2021-02-25] MEDS: Gabapentin 400 MG CAPSULE PO SCH ×3 (07:45→21:42)
[2021-02-25] MEDS: polyethylene glycoL 3350 17 GM POWD.PACK PO SCH (07:46)
[2021-02-25] MEDS: carvediloL 25 MG TABLET PO SCH ×2 (07:46→21:42)
[2021-02-25] MEDS ORDERED: Scopolamine Patch 1.5 MG PATCH.TD72 TD SCH (09:00)
[2021-02-25] MEDS: Ondansetron ODT 4 MG TAB.RAPDIS SL PRN (09:40)
[2021-02-25] MEDS: Ipratropium/Albuterol Neb 3 ML IH SCH ×2 (09:51→21:53)
[2021-02-25] MEDS ORDERED: Sennosides/Docusate Sodium TABLET PO PRN (11:20)
[2021-02-25] MEDS ORDERED: polyethylene glycoL 3350 17 GM POWD.PACK PO PRN (11:20)
[2021-02-26] MEDS: *HR* Enoxaparin 40 MG/0.4 ML SYRINGE SQ SCH (05:30)
[2021-02-26] MEDS: diazePAM 2 MG TABLET PO PRN ×3 (05:30→23:55)
[2021-02-26] MEDS: *HR* OxyCODONE Immed Rel 5 MG TABLET PO PRN ×5 (05:31→23:55)
[2021-02-26] MEDS: Ipratropium/Albuterol Neb 3 ML IH SCH ×2 (09:23→21:30)
[2021-02-26] MEDS: BuPROPion XL (24 HR) 150 MG TABLET PO SCH (09:39)
[2021-02-26] MEDS: carvediloL 25 MG TABLET PO SCH ×2 (09:39→21:22)
[2021-02-26] MEDS: Gabapentin 400 MG CAPSULE PO SCH ×3 (09:39→21:19)
[2021-02-26] MEDS: methocarbamoL 500 MG TABLET PO PRN ×2 (13:06→21:20)
[2021-02-27] MEDS: methocarbamoL 500 MG TABLET PO PRN ×3 (03:47→17:47)
[2021-02-27] MEDS: *HR* Enoxaparin 40 MG/0.4 ML SYRINGE SQ SCH (05:37)
[2021-02-27] MEDS: *HR* OxyCODONE Immed Rel 5 MG TABLET PO PRN ×4 (05:38→19:48)
[2021-02-27] MEDS: diazePAM 2 MG TABLET PO PRN ×3 (05:38→22:47)
[2021-02-27] MEDS: Gabapentin 400 MG CAPSULE PO SCH ×3 (08:59→19:48)
[2021-02-27] MEDS: BuPROPion XL (24 HR) 150 MG TABLET PO SCH (08:59)
[2021-02-27] MEDS: carvediloL 25 MG TABLET PO SCH ×2 (08:59→19:49)
[2021-02-27] MEDS: [UNRECOGNIZED DRUG - OTHER] PO SCH (09:09)
[2021-02-27] MEDS: Ondansetron ODT 4 MG TAB.RAPDIS SL PRN ×2 (10:08→22:46)
[2021-02-27] MEDS: Ipratropium/Albuterol Neb 3 ML IH SCH ×2 (11:04→20:47)
[2021-02-27] MEDS: Scopolamine Patch 1.5 MG PATCH.TD72 TD SCH (11:27)
[2021-02-27] MEDS: Acetaminophen 325 MG TABLET PO PRN ×2 (13:08→22:47)
[2021-02-28] MEDS: *HR* Enoxaparin 40 MG/0.4 ML SYRINGE SQ SCH (05:05)
[2021-02-28] MEDS: *HR* OxyCODONE Immed Rel 5 MG TABLET PO PRN ×5 (05:06→22:05)
[2021-02-28 05:18] LABS: Basophils % 0.4 %; Eosinophils # 0.2 K/mcL (0.0-0.6); Eosinophils % 2.5 %; Hematocrit 30.6 % (35.3-44.9); Hemoglobin 9.3 g/dL (11.5-15.4); Immature Granulocytes % 2.1 % (0-4); Lymphocytes # 1.6 K/mcL (0.6-4.6); Lymphocytes % 17.1 %; Mean Corpuscular HGB Conc 30.4 g/dL (31.6-35.5); Mean Corpuscular Hemoglobin 26.6 pg (28.0-33.3); Mean Corpuscular Volume 87.4 fL (83.0-100.0); Mean Platelet Volume 9.8 fL (9.4-12.4); Monocytes # 0.7 K/mcL (0.0-1.3); Monocytes % 7.6 %; Neutrophils # 6.6 K/mcL (1.6-8.9); Platelet Count 428 K/mcL (140-400); Red Cell Distribution Width 15.9 % (11.5-14.5); Segmented Neutrophils % 70.3 %; White Blood Count 9.4 K/mcL (4.3-11.1)
[2021-02-28 05:30] LABS: BUN/Creatinine Ratio 24 (6-26); Blood Urea Nitrogen 14 mg/dL (6-20); Calcium 9.1 mg/dL (8.6-10.3); Carbon Dioxide 29 mEq/L (23-29); Chloride 100 mEq/L (98-107); Glucose 113 mg/dL (70-105); Osmolality,Calculated 281 (280-300); Potassium 4.4 mEq/L (3.5-5.1); Sodium 135 mEq/L (136-145); eGFR For African Americans > 60 (> 60); eGFR For Non-African Americans > 60 (> 60)
[2021-02-28] MEDS: Ipratropium/Albuterol Neb 3 ML IH SCH ×2 (07:55→20:01)
[2021-02-28] MEDS: carvediloL 25 MG TABLET PO SCH ×2 (07:57→21:16)
[2021-02-28] MEDS: Gabapentin 400 MG CAPSULE PO SCH ×3 (08:09→21:15)
[2021-02-28] MEDS: BuPROPion XL (24 HR) 150 MG TABLET PO SCH (08:09)
[2021-02-28] MEDS: [UNRECOGNIZED DRUG - OTHER] PO SCH (08:10)
[2021-02-28] MEDS: diazePAM 2 MG TABLET PO PRN ×2 (08:53→22:05)
[2021-02-28] MEDS: Ondansetron ODT 4 MG TAB.RAPDIS SL PRN (10:09)
[2021-02-28] MEDS: Acetaminophen 325 MG TABLET PO PRN (11:40)
[2021-03-01] MEDS: *HR* OxyCODONE Immed Rel 5 MG TABLET PO PRN ×5 (03:20→21:41)
[2021-03-01] MEDS: *HR* Enoxaparin 40 MG/0.4 ML SYRINGE SQ SCH (05:01)
[2021-03-01] MEDS: methocarbamoL 500 MG TABLET PO PRN ×2 (05:04→13:04)
[2021-03-01] MEDS: diazePAM 2 MG TABLET PO PRN ×3 (05:04→21:41)
[2021-03-01] MEDS: Ipratropium/Albuterol Neb 3 ML IH SCH ×2 (06:35→19:32)
[2021-03-01] MEDS: carvediloL 25 MG TABLET PO SCH ×2 (08:30→21:40)
[2021-03-01] MEDS: BuPROPion XL (24 HR) 150 MG TABLET PO SCH (08:31)
[2021-03-01] MEDS: [UNRECOGNIZED DRUG - OTHER] PO SCH (08:31)
[2021-03-01] MEDS: Gabapentin 400 MG CAPSULE PO SCH ×3 (08:31→21:41)
[2021-03-01] MEDS: Acetaminophen 325 MG TABLET PO PRN (11:51)
[2021-03-02] MEDS: *HR* OxyCODONE Immed Rel 5 MG TABLET PO PRN ×3 (06:27→21:46)
[2021-03-02] MEDS: *HR* Enoxaparin 40 MG/0.4 ML SYRINGE SQ SCH (06:28)
[2021-03-02] MEDS: methocarbamoL 500 MG TABLET PO PRN ×2 (06:30→15:20)
[2021-03-02] MEDS: Ipratropium/Albuterol Neb 3 ML IH SCH ×2 (06:33→20:08)
[2021-03-02] MEDS: Ondansetron ODT 4 MG TAB.RAPDIS SL PRN (08:32)
[2021-03-02] MEDS: BuPROPion XL (24 HR) 150 MG TABLET PO SCH (08:33)
[2021-03-02] MEDS: carvediloL 25 MG TABLET PO SCH ×2 (08:33→21:45)
[2021-03-02] MEDS: Gabapentin 400 MG CAPSULE PO SCH ×3 (08:33→21:45)
[2021-03-02] MEDS: [UNRECOGNIZED DRUG - OTHER] PO SCH (08:34)
[2021-03-02] MEDS: diazePAM 2 MG TABLET PO PRN ×2 (08:34→21:46)
[2021-03-02] MEDS: Scopolamine Patch 1.5 MG PATCH.TD72 TD SCH (11:06)
[2021-03-02] MEDS: Acetaminophen 325 MG TABLET PO PRN (13:11)
[2021-03-03] MEDS: *HR* Enoxaparin 40 MG/0.4 ML SYRINGE SQ SCH (04:17)
[2021-03-03] MEDS: *HR* OxyCODONE Immed Rel 5 MG TABLET PO PRN ×5 (04:18→22:31)
[2021-03-03] MEDS: methocarbamoL 500 MG TABLET PO PRN (07:49)
[2021-03-03] MEDS: BuPROPion XL (24 HR) 150 MG TABLET PO SCH (07:49)
[2021-03-03] MEDS: Gabapentin 400 MG CAPSULE PO SCH ×3 (07:50→21:05)
[2021-03-03] MEDS: [UNRECOGNIZED DRUG - OTHER] PO SCH (07:53)
[2021-03-03] MEDS: Ipratropium/Albuterol Neb 3 ML IH SCH ×2 (09:00→19:56)
[2021-03-03] MEDS: diazePAM 2 MG TABLET PO PRN ×2 (10:27→21:06)
[2021-03-03] MEDS: carvediloL 25 MG TABLET PO SCH ×2 (10:46→21:05)
[2021-03-03] MEDS: Acetaminophen 325 MG TABLET PO PRN ×2 (13:16→21:06)
[2021-03-04] MEDS: diazePAM 2 MG TABLET PO PRN ×3 (04:54→22:04)
[2021-03-04] MEDS: *HR* Enoxaparin 40 MG/0.4 ML SYRINGE SQ SCH (04:54)
[2021-03-04] MEDS: *HR* OxyCODONE Immed Rel 5 MG TABLET PO PRN ×5 (04:55→22:05)
[2021-03-04] MEDS: Ipratropium/Albuterol Neb 3 ML IH SCH ×2 (06:37→20:45)
[2021-03-04] MEDS: BuPROPion XL (24 HR) 150 MG TABLET PO SCH (08:55)
[2021-03-04] MEDS: carvediloL 25 MG TABLET PO SCH ×2 (08:55→22:04)
[2021-03-04] MEDS: Gabapentin 400 MG CAPSULE PO SCH ×3 (08:55→22:03)
[2021-03-04] MEDS: [UNRECOGNIZED DRUG - OTHER] PO SCH (08:56)
[2021-03-04] MEDS: tiZANidine 4 MG TABLET PO PRN ×2 (10:43→18:57)
[2021-03-05] MEDS: *HR* OxyCODONE Immed Rel 5 MG TABLET PO PRN ×4 (05:29→18:43)
[2021-03-05] MEDS: *HR* Enoxaparin 40 MG/0.4 ML SYRINGE SQ SCH (05:30)
[2021-03-05] MEDS: diazePAM 2 MG TABLET PO PRN ×2 (05:33→13:57)
[2021-03-05] MEDS: Ipratropium/Albuterol Neb 3 ML IH SCH ×2 (06:35→21:32)
[2021-03-05] MEDS: Gabapentin 400 MG CAPSULE PO SCH ×3 (08:20→20:50)
[2021-03-05] MEDS: BuPROPion XL (24 HR) 150 MG TABLET PO SCH (08:20)
[2021-03-05] MEDS: tiZANidine 4 MG TABLET PO PRN ×2 (08:20→16:37)
[2021-03-05] MEDS: carvediloL 25 MG TABLET PO SCH ×2 (08:20→20:50)
[2021-03-05] MEDS: [UNRECOGNIZED DRUG - OTHER] PO SCH (08:23)
[2021-03-05] MEDS: Scopolamine Patch 1.5 MG PATCH.TD72 TD SCH (08:25)
[2021-03-05] MEDS ORDERED: Patient Taking Own Medication 1 EACH PO SCH (15:05)
[2021-03-05] MEDS: [UNRECOGNIZED DRUG - OTHER] PO SCH (15:09)
[2021-03-06] MEDS: *HR* OxyCODONE Immed Rel 5 MG TABLET PO PRN ×5 (00:05→21:31)
[2021-03-06] MEDS: diazePAM 2 MG TABLET PO PRN ×3 (00:06→16:54)
[2021-03-06] MEDS: tiZANidine 4 MG TABLET PO PRN ×2 (05:22→16:54)
[2021-03-06] MEDS: *HR* Enoxaparin 40 MG/0.4 ML SYRINGE SQ SCH (05:22)
[2021-03-06] MEDS: Ondansetron ODT 4 MG TAB.RAPDIS SL PRN ×2 (05:58→11:55)
[2021-03-06] MEDS: Ipratropium/Albuterol Neb 3 ML IH SCH ×2 (06:15→20:12)
[2021-03-06] MEDS: carvediloL 25 MG TABLET PO SCH ×2 (08:31→21:30)
[2021-03-06] MEDS: Gabapentin 400 MG CAPSULE PO SCH ×3 (08:31→21:30)
[2021-03-06] MEDS: BuPROPion XL (24 HR) 150 MG TABLET PO SCH (08:31)
[2021-03-06] MEDS ORDERED: Patient Taking Own Medication 1 EACH PO SCH (09:00)
[2021-03-06] MEDS: [UNRECOGNIZED DRUG - OTHER] PO SCH (09:30)
[2021-03-06] MEDS ORDERED: *HR* OxyCODONE Immed Rel 5 MG TABLET PO ONE (12:15)
[2021-03-07] MEDS: *HR* OxyCODONE Immed Rel 5 MG TABLET PO PRN ×5 (04:06→21:51)
[2021-03-07] MEDS: tiZANidine 4 MG TABLET PO PRN ×2 (04:07→13:58)
[2021-03-07] MEDS: *HR* Enoxaparin 40 MG/0.4 ML SYRINGE SQ SCH (04:08)
[2021-03-07] MEDS: diazePAM 2 MG TABLET PO PRN ×2 (06:12→20:14)
[2021-03-07] MEDS: Ipratropium/Albuterol Neb 3 ML IH SCH ×2 (07:06→19:56)
[2021-03-07] MEDS: carvediloL 25 MG TABLET PO SCH (08:20)
[2021-03-07] MEDS: BuPROPion XL (24 HR) 150 MG TABLET PO SCH (08:20)
[2021-03-07] MEDS: Gabapentin 400 MG CAPSULE PO SCH ×3 (08:21→20:09)
[2021-03-07] MEDS: [UNRECOGNIZED DRUG - OTHER] PO SCH (08:21)
[2021-03-07] MEDS: Acetaminophen 325 MG TABLET PO PRN (10:04)
[2021-03-07] MEDS ORDERED: carvediloL 25 MG TABLET PO SCH (17:00)
[2021-03-07] MEDS: carvediloL 6.25 MG TABLET PO SCH (17:01)
[2021-03-08] MEDS: *HR* OxyCODONE Immed Rel 5 MG TABLET PO PRN ×4 (06:31→20:24)
[2021-03-08] MEDS: *HR* Enoxaparin 40 MG/0.4 ML SYRINGE SQ SCH (06:31)
[2021-03-08] MEDS: tiZANidine 4 MG TABLET PO PRN ×2 (06:37→16:58)
[2021-03-08] MEDS: Acetaminophen 325 MG TABLET PO PRN ×2 (07:41→16:51)
[2021-03-08] MEDS: BuPROPion XL (24 HR) 150 MG TABLET PO SCH (07:41)
[2021-03-08] MEDS: Gabapentin 400 MG CAPSULE PO SCH ×3 (07:41→20:24)
[2021-03-08] MEDS: carvediloL 6.25 MG TABLET PO SCH ×2 (07:41→16:52)
[2021-03-08] MEDS: Ipratropium/Albuterol Neb 3 ML IH SCH ×2 (07:54→19:28)
[2021-03-08] MEDS: diazePAM 2 MG TABLET PO PRN ×2 (09:37→22:28)
[2021-03-08] MEDS: [UNRECOGNIZED DRUG - OTHER] PO SCH (11:03)
[2021-03-09] MEDS: *HR* OxyCODONE Immed Rel 5 MG TABLET PO PRN ×4 (05:44→20:29)
[2021-03-09] MEDS: *HR* Enoxaparin 40 MG/0.4 ML SYRINGE SQ SCH (05:45)
[2021-03-09 06:14] LABS: Basophils % 0.9 %; Eosinophils # 0.2 K/mcL (0.0-0.6); Eosinophils % 4.9 %; Hematocrit 27.7 % (35.3-44.9); Hemoglobin 8.2 g/dL (11.5-15.4); Immature Granulocytes % 0.2 % (0-4); Lymphocytes # 0.9 K/mcL (0.6-4.6); Lymphocytes % 20.8 %; Mean Corpuscular HGB Conc 29.6 g/dL (31.6-35.5); Mean Corpuscular Hemoglobin 25.7 pg (28.0-33.3); Mean Corpuscular Volume 86.8 fL (83.0-100.0); Mean Platelet Volume 9.3 fL (9.4-12.4); Monocytes # 0.6 K/mcL (0.0-1.3); Monocytes % 12.9 %; Neutrophils # 2.6 K/mcL (1.6-8.9); Platelet Count 318 K/mcL (140-400); Red Blood Count 3.19 M/mcL (3.82-4.97); Red Cell Distribution Width 15.1 % (11.5-14.5); Segmented Neutrophils % 60.3 %; White Blood Count 4.3 K/mcL (4.3-11.1)
[2021-03-09] MEDS: Acetaminophen 325 MG TABLET PO PRN ×2 (06:14→22:35)
[2021-03-09 06:34] LABS: BUN/Creatinine Ratio 21 (6-26); Blood Urea Nitrogen 10 mg/dL (6-20); Calcium 8.8 mg/dL (8.6-10.3); Carbon Dioxide 28 mEq/L (23-29); Chloride 104 mEq/L (98-107); Glucose 87 mg/dL (70-105); Osmolality,Calculated 286 (280-300); Potassium 3.8 mEq/L (3.5-5.1); Sodium 139 mEq/L (136-145); eGFR For African Americans > 60 (> 60); eGFR For Non-African Americans > 60 (> 60)
[2021-03-09] MEDS: tiZANidine 4 MG TABLET PO PRN ×3 (07:42→22:35)
[2021-03-09] MEDS: carvediloL 6.25 MG TABLET PO SCH ×2 (07:43→16:23)
[2021-03-09] MEDS: BuPROPion XL (24 HR) 150 MG TABLET PO SCH (07:43)
[2021-03-09] MEDS: Gabapentin 400 MG CAPSULE PO SCH ×3 (07:43→20:29)
[2021-03-09] MEDS: Ipratropium/Albuterol Neb 3 ML IH SCH ×2 (08:04→20:42)
[2021-03-09] MEDS: Ondansetron ODT 4 MG TAB.RAPDIS SL PRN ×2 (08:37→14:03)
[2021-03-09] MEDS: [UNRECOGNIZED DRUG - OTHER] PO SCH (10:42)
[2021-03-09] MEDS: diazePAM 2 MG TABLET PO PRN ×2 (10:42→20:29)
[2021-03-10] MEDS: *HR* Enoxaparin 40 MG/0.4 ML SYRINGE SQ SCH (05:34)
[2021-03-10] MEDS: *HR* OxyCODONE Immed Rel 5 MG TABLET PO PRN ×2 (05:35→10:20)
[2021-03-10] MEDS: Ipratropium/Albuterol Neb 3 ML IH SCH ×2 (06:38→19:08)
[2021-03-10] MEDS: Gabapentin 400 MG CAPSULE PO SCH ×3 (07:54→21:24)
[2021-03-10] MEDS: Acetaminophen 325 MG TABLET PO PRN (07:54)
[2021-03-10] MEDS: diazePAM 2 MG TABLET PO PRN (07:54)
[2021-03-10] MEDS: carvediloL 6.25 MG TABLET PO SCH ×2 (07:54→15:49)
[2021-03-10] MEDS: tiZANidine 4 MG TABLET PO PRN ×3 (07:55→21:24)
[2021-03-10] MEDS: [UNRECOGNIZED DRUG - OTHER] PO SCH (07:56)
[2021-03-10] MEDS: BuPROPion XL (24 HR) 150 MG TABLET PO SCH (07:56)
[2021-03-10] MEDS ORDERED: *HR* OxyCODONE/APAP 5/325 TABLET PO PRN (12:11)
[2021-03-10] MEDS: *HR* OxyCODONE/APAP 7.5/325 TABLET PO PRN ×2 (14:09→21:25)
[2021-03-11] MEDS: *HR* Enoxaparin 40 MG/0.4 ML SYRINGE SQ SCH (04:50)
[2021-03-11] MEDS: *HR* OxyCODONE/APAP 7.5/325 TABLET PO PRN ×4 (04:50→20:09)
[2021-03-11] MEDS: tiZANidine 4 MG TABLET PO PRN ×2 (04:50→16:38)
[2021-03-11 06:06] LABS: Basophils % 0.9 %; Eosinophils # 0.2 K/mcL (0.0-0.6); Eosinophils % 4.9 %; Hematocrit 31.1 % (35.3-44.9); Hemoglobin 9.1 g/dL (11.5-15.4); Immature Granulocytes % 0.4 % (0-4); Lymphocytes # 1.2 K/mcL (0.6-4.6); Lymphocytes % 26.2 %; Mean Corpuscular HGB Conc 29.3 g/dL (31.6-35.5); Mean Corpuscular Hemoglobin 25.5 pg (28.0-33.3); Mean Corpuscular Volume 87.1 fL (83.0-100.0); Mean Platelet Volume 10.6 fL (9.4-12.4); Monocytes # 0.5 K/mcL (0.0-1.3); Monocytes % 10.4 %; Neutrophils # 2.7 K/mcL (1.6-8.9); Platelet Count 286 K/mcL (140-400); Red Blood Count 3.57 M/mcL (3.82-4.97); Red Cell Distribution Width 15.2 % (11.5-14.5); Segmented Neutrophils % 57.2 %; White Blood Count 4.7 K/mcL (4.3-11.1)
[2021-03-11] MEDS: Ondansetron ODT 4 MG TAB.RAPDIS SL PRN (06:08)
[2021-03-11 06:31] LABS: BUN/Creatinine Ratio 16 (6-26); Blood Urea Nitrogen 10 mg/dL (6-20); Calcium 9.2 mg/dL (8.6-10.3); Carbon Dioxide 26 mEq/L (23-29); Chloride 104 mEq/L (98-107); Glucose 99 mg/dL (70-105); Osmolality,Calculated 285 (280-300); Potassium 4.4 mEq/L (3.5-5.1); Sodium 138 mEq/L (136-145); eGFR For African Americans > 60 (> 60); eGFR For Non-African Americans > 60 (> 60)
[2021-03-11] MEDS: Ipratropium/Albuterol Neb 3 ML IH SCH ×2 (07:54→20:32)
[2021-03-11] MEDS: [UNRECOGNIZED DRUG - OTHER] PO SCH (09:35)
[2021-03-11] MEDS: BuPROPion XL (24 HR) 150 MG TABLET PO SCH (09:35)
[2021-03-11] MEDS: carvediloL 6.25 MG TABLET PO SCH ×2 (09:36→16:38)
[2021-03-11] MEDS: Gabapentin 400 MG CAPSULE PO SCH ×3 (09:36→20:09)
[2021-03-11] MEDS: diazePAM 2 MG TABLET PO PRN ×2 (10:34→21:56)
[2021-03-11 12:31] LABS: % Iron Saturation 6 % (15-50); Iron 21 mcg/dL (50-170); Transferrin 257 mg/dL (203-362)
[2021-03-12] MEDS: tiZANidine 4 MG TABLET PO PRN ×3 (01:32→22:18)
[2021-03-12] MEDS: *HR* OxyCODONE/APAP 7.5/325 TABLET PO PRN ×3 (05:42→15:40)
[2021-03-12] MEDS: *HR* Enoxaparin 40 MG/0.4 ML SYRINGE SQ SCH (05:43)
[2021-03-12] MEDS: diazePAM 2 MG TABLET PO PRN ×2 (09:01→20:44)
[2021-03-12] MEDS: [UNRECOGNIZED DRUG - OTHER] PO SCH (09:01)
[2021-03-12] MEDS: Gabapentin 400 MG CAPSULE PO SCH ×3 (09:01→20:44)
[2021-03-12] MEDS: BuPROPion XL (24 HR) 150 MG TABLET PO SCH (09:01)
[2021-03-12] MEDS: Ipratropium/Albuterol Neb 3 ML IH SCH ×2 (09:03→20:08)
[2021-03-12] MEDS: carvediloL 6.25 MG TABLET PO SCH ×2 (09:10→15:41)
[2021-03-13] MEDS: *HR* Enoxaparin 40 MG/0.4 ML SYRINGE SQ SCH (05:30)
[2021-03-13] MEDS: *HR* OxyCODONE/APAP 7.5/325 TABLET PO PRN ×4 (05:30→21:45)
[2021-03-13] MEDS: Ondansetron ODT 4 MG TAB.RAPDIS SL PRN (05:34)
[2021-03-13] MEDS: Ipratropium/Albuterol Neb 3 ML IH SCH (07:52)
[2021-03-13] MEDS: BuPROPion XL (24 HR) 150 MG TABLET PO SCH (09:24)
[2021-03-13] MEDS: Gabapentin 400 MG CAPSULE PO SCH ×3 (09:24→20:28)
[2021-03-13] MEDS: [UNRECOGNIZED DRUG - OTHER] PO SCH (09:25)
[2021-03-13] MEDS: carvediloL 6.25 MG TABLET PO SCH ×2 (09:25→16:38)
[2021-03-13] MEDS: diazePAM 2 MG TABLET PO PRN (12:10)
[2021-03-13] MEDS: tiZANidine 4 MG TABLET PO PRN ×2 (14:11→22:58)
[2021-03-13] MEDS ORDERED: Ipratropium/Albuterol Neb 3 ML IH PRN (15:29)
[2021-03-14] MEDS: diazePAM 2 MG TABLET PO PRN ×2 (00:15→12:33)
[2021-03-14] MEDS: *HR* OxyCODONE/APAP 7.5/325 TABLET PO PRN ×4 (05:19→20:47)
[2021-03-14] MEDS: *HR* Enoxaparin 40 MG/0.4 ML SYRINGE SQ SCH (05:19)
[2021-03-14] MEDS: Acetaminophen 325 MG TABLET PO PRN (07:01)
[2021-03-14] MEDS: tiZANidine 4 MG TABLET PO PRN ×3 (07:01→20:47)
[2021-03-14] MEDS: Gabapentin 400 MG CAPSULE PO SCH ×3 (09:45→20:47)
[2021-03-14] MEDS: [UNRECOGNIZED DRUG - OTHER] PO SCH (09:46)
[2021-03-14] MEDS: carvediloL 6.25 MG TABLET PO SCH ×2 (09:46→14:59)
[2021-03-14] MEDS: BuPROPion XL (24 HR) 150 MG TABLET PO SCH (09:46)
[2021-03-15] MEDS: Acetaminophen 325 MG TABLET PO PRN (03:41)
[2021-03-15] MEDS: diazePAM 2 MG TABLET PO PRN (03:42)
[2021-03-15 05:55] VITALS: RESP 16
[2021-03-15] MEDS: *HR* Enoxaparin 40 MG/0.4 ML SYRINGE SQ SCH (05:57)
[2021-03-15] MEDS: carvediloL 6.25 MG TABLET PO SCH ×2 (05:57→17:29)
[2021-03-15] MEDS: BuPROPion XL (24 HR) 150 MG TABLET PO SCH (05:58)
[2021-03-15] MEDS: [UNRECOGNIZED DRUG - OTHER] PO SCH (05:58)
[2021-03-15] MEDS: Gabapentin 400 MG CAPSULE PO SCH ×3 (05:58→20:46)
[2021-03-15] MEDS ORDERED: *HR* OxyCODONE/APAP 5/325 TABLET PO ONE (06:00)
[2021-03-15] MEDS: *HR* OxyCODONE/APAP 7.5/325 TABLET PO PRN ×2 (12:44→20:47)
[2021-03-15] MEDS: tiZANidine 4 MG TABLET PO PRN (17:30)
[2021-03-15] MEDS: Ondansetron ODT 4 MG TAB.RAPDIS SL PRN (21:57)
[2021-03-16] MEDS: *HR* Enoxaparin 40 MG/0.4 ML SYRINGE SQ SCH (05:02)
[2021-03-16] MEDS: *HR* OxyCODONE/APAP 7.5/325 TABLET PO PRN ×2 (05:02→09:26)
[2021-03-16 06:51] VITALS: BP 122/86; PULSE 85; TEMP 98.5; O2SAT 94
[2021-03-16] MEDS: Gabapentin 400 MG CAPSULE PO SCH (08:16)
[2021-03-16] MEDS: carvediloL 6.25 MG TABLET PO SCH (08:16)
[2021-03-16] MEDS: tiZANidine 4 MG TABLET PO PRN (08:16)
[2021-03-16] MEDS: BuPROPion XL (24 HR) 150 MG TABLET PO SCH (08:16)
[2021-03-16] MEDS: [UNRECOGNIZED DRUG - OTHER] PO SCH (09:22)
[2021-03-16] MEDS: diazePAM 2 MG TABLET PO PRN (11:31)
== END 2021-03-16 11:42 | disposition home health service (06) | DRG 560 ==
LOC: INPGRE 02-24 16:23
PROVIDERS: ADMIT Family Medicine; ATTEND Family Medicine